=== PATIENT | female | born 1995 | race African-American/Black ===

== ENCOUNTER 2018-03-18 11:58 | Inpatient (IN) ==
[2018-03-18] MEDS ORDERED: HYDROmorphone PF Inj 1 MG/ML Ampul IV.PUSH ONE (12:25)
[2018-03-18] MEDS ORDERED: Sod Chloride 0.9% Inj 1,000 ML IV.SIG SCH (12:30)
--- NOTE | 2018-03-18 12:30 | ED ---
HPI General Chief complaint: Sickle Cell Stated complaint: Poss sickle cell anemia Time Seen by Provider: 03/18/18 12:19 Source: patient and family (Mother) Mode of arrival: wheelchair Limitations: no limitations History of Present Illness HPI narrative: 22-year-old female with history of sickle cell anemia, followed by a bench repair technician Dr. Moody at [facility] in [place], here with mom for evaluation of vaso-occlusive crisis. Symptoms started yesterday. The patient was actually just discharged from the emergency department in [place] still with pain. According to her mother, they were not adequately treating her pain, and the patient was discharged to soon. The mom requested that the patient be transferred to her bench repair technician in [place], however the treating physician declined to do so. Patient complains of diffuse body pains that are severe and are typical for vaso-occlusive crisis. Pain is mainly in her back, legs, and arms. She also has some chest pain that is sharp as well as a cough productive of yellowish/greenish sputum. No hemoptysis. No dyspnea. No fever. Related Data Home Medications Medication Instructions Recorded Confirmed albuterol sulfate 2 inh INHALATION Q4-6H PRN 03/18/18 03/18/18 folic acid 1 mg PO DAILY 03/18/18 03/18/18 hydromorphone [Dilaudid] 4 mg PO Q4-6H PRN 03/18/18 03/18/18 Allergies Allergy/AdvReac Type Severity Reaction Status Date / Time house dust Allergy Severe Swelling Unverified 03/18/18 12:08 milk Allergy Severe Rash Unverified 03/18/18 12:08 venom-honey bee Allergy Severe Swelling Unverified 03/18/18 12:08 Cockroach Allergy Severe SWELLING Uncoded 03/18/18 12:08 *MDRO Multi-Drug Resistant AdvReac Unknown MRSA Uncoded 03/18/18 12:08 Organism Review of Systems ROS: all other systems reviewed are negative [facility] Medical History Medical History Asthma (Acute) Sickle cell anemia (Acute) Surgical History Surgical History History of vascular access device (Acute) Social History Social History Substance History: Active Abuse Second Hand Smoke Exposure: No Smoking Status: Never smoker How Often Do You Have a Drink Containing Alcohol: Never Recent Travel in [facility] within the Last 8 Weeks: No Recent Out of Country Travel within the Last 8 Weeks: No Substance Abuse Detail Marijuana: Substance Use Status: Active Route Used Substance Abuse: Inhalation Reason for Use: Calm Down Immunization History Tetanus Immunization: Unsure Exam Narrative Exam Narrative: GENERAL: Well-developed, well-nourished, writhing in pain SKIN: Focused skin assessment warm/dry. No rash. HEAD: Atraumatic. Normocephalic. EYES: Pupils equal and round. No scleral icterus. No injection or drainage. ENT: No nasal bleeding or discharge. Mucous membranes pink and moist. NECK: Trachea midline. No JVD. CARDIOVASCULAR: Tachycardic, rate 101, regular. No murmur appreciated. RESPIRATORY: No accessory muscle use. Clear to auscultation. Breath sounds equal bilaterally. GASTROINTESTINAL: Abdomen soft, non-tender, nondistended. MUSCULOSKELETAL: No obvious deformities. No clubbing. No cyanosis. No edema. No signs of dactylitis. No warmth or erythema to any joint or extremity. NEUROLOGICAL: Awake and alert. No obvious cranial nerve deficits. Motor grossly within normal limits. Normal speech. PSYCHIATRIC: Appropriate mood and affect; insight and judgment normal. Course Initial Documented Vital Signs Temperature 98.7 F 03/18/18 12:04 Pulse Rate 99 H 03/18/18 12:04 Respiratory Rate 18 03/18/18 12:04 Blood Pressure 128/84 03/18/18 12:04 Pulse Oximetry 100 03/18/18 12:04 Last Documented Vital Signs Temperature 98.7 F 03/18/18 12:04 Pulse Rate 98 H 03/18/18 13:11 Respiratory Rate 20 03/18/18 13:11 Blood Pressure 114/52 L 03/18/18 13:11 Pulse Oximetry 95 03/18/18 13:11 Medical Decision Making [facility] Narrative Medical decision making narrative: Initial vital signs show heart rate 98, blood pressure 114/52, pulse ox 95% on room air, oral temperature 98.7F. CBC is remarkable for WBC 29.6, hemoglobin 7.2, hematocrit 21.4, platelets 512, 23.7 absolute neutrophil count, 1+ sickle cells, [place] bodies present CMP is essentially unremarkable. Reticulocyte count is 12%. Chest x-ray: No evidence of acute cardiopulmonary disease. Enlargement of the cardiac silhouette appears stable and may be secondary to orbital technique. Patient was given a liter of normal saline IV bolus, 1 mg of IV Dilaudid, and 50 mg of oral Benadryl shortly after my assessment. She continued to complain of pain and was given another dose of 1 mg of Dilaudid. She continues to moan in pain, however has brief episodes where she falls asleep. I am afraid of causing respiratory depression by overmedicating her with narcotic pain medications, therefore she will be given a dose of Toradol as her third dose of medication for pain control. The patient and the patient's mom were made aware of all findings. Mom tells me that her hemoglobin usually runs around 7.5, and her last transfusion was when it was below 7. She was also in the emergency department at [facility] throughout the night and likely received IV fluids, thus could be the culprit for even lower hemoglobin seen on her labs currently. Even though the patient's chest x-ray is clear, she does have a significant leukocytosis and has been having greenish/yellowish sputum. She denies hemoptysis. She may have bronchitis. Influenza will be checked, and the patient will be empirically given Rocephin and azithromycin to cover any pulmonary of possible infection. Because of ongoing pain, the patient will be admitted for further treatment and evaluation. Case discussed with hospitalist Dr. Craig who will admit the patient to his service. Medical Screen Exam Complete: Yes Emergency Medical Condition: Yes Differential Diagnosis Differential Diagnosis: Vaso-occlusive crisis, anemia, acute chest syndrome, pneumonia Lab Data Result diagrams: 03/18/18 12:55 03/18/18 12:55 Lab Results 03/18/18 03/18/18 Range/Units 12:55 12:55 WBC 29.6 H (4.0-11.0) th/mm3 RBC 2.21 L (4.00-5.30) mil/mm3 Hgb 7.2 L (11.6-15.3) gm/dL Hct 21.4 L (35.0-46.0) % MCV 96.7 (80.0-100.0) fL MCH 32.4 (27.0-34.0) pg MCHC 33.5 (32.0-36.0) % RDW 21.6 H (11.6-17.2) % Plt Count 512 H (150-450) th/mm3 MPV 7.9 (7.0-11.0) fL Prelim Diff (Auto) Manual diff required WBC Differential Manual diff final Seg Neuts % (Manual) 77 H (16-70) % Band Neuts % (Manual) 3 (0-6) % Lymphocytes % (Manual) 16 (9-44) % Monocytes % (Manual) 4 (0-8) % Abs Neuts (Manual) 23.7 H (1.8-7.7) th/mm3 Nucleated RBCs/100 WBC 5 H (0-0) /100 WBC Differential Comment . Platelet Estimate High H (Normal) Platelet Morphology Normal (Normal) Polychromasia 2.6 H (0.0-1.9) % Pappenheimer Bodies Present H (None) Sickle Cells 1+ H (None) [place] Bodies Present H (None) Retic Count 12.0 H (0.4-3.0) % Absolute Retic 264.5 H (20.0-150.0) mil/L Sodium 141 (136-145) meq/L Potassium 3.6 (3.5-5.1) meq/L Chloride 111 H (98-107) meq/L Carbon Dioxide 23.5 (21.0-32.0) meq/L Anion Gap 7 (5-15) meq/L BUN 4 L (7-18) mg/dL Creatinine 0.53 (0.50-1.00) mg/dL Estimated GFR Greater than 89 (>89) mL/min Random Glucose 118 H (74-106) mg/dL Calcium 8.1 L (8.5-10.1) mg/dL Total Bilirubin 1.7 H (0.2-1.0) mg/dL AST 44 H (16-38) U/L ALT 19 (9-42) U/L Alkaline Phosphatase 60 (45-117) U/L Total Creatine Kinase 74 (26-192) U/L Troponin I 0.02 (0.02-0.05) ng/mL Total Protein 7.3 (6.4-8.2) g/dL Albumin 4.0 (3.4-5.0) g/dL Imaging Data Radiologist's impression: Chest X-Ray 03/18/18 12:25 CONCLUSION: No evidence of acute cardiopulmonary disease. Enlargement of the cardiac silhouette appears stable and may be secondary to orbital technique. ECG Data Attestation: I personally reviewed and interpreted this ECG as follows: (Sinus, rate 88, normal axis, normal intervals, no acute ischemic abnormality.) Discharge Plan Discharge Disposition Patient Disposition: ED Admit(ED Internal Use Only) Discharge Condition Condition: Fair Discharge Details Diagnosis: Acute sickle cell crisis Physicians Team ED Provider: Hung Hidalgo Primary Care Provider: UNKNOWN, Rxs /Orders / Referrals /Forms Prescriptions: No Action folic acid 1 mg Tablet 1 mg PO DAILY RF: 0 hydromorphone [Dilaudid] 4 mg Tablet 4 mg PO Q4-6H PRN (Reason: Pain) RF: 0 albuterol sulfate 90 mcg/actuation Aerosol Powdr Breath Activated 2 inh INHALATION Q4-6H PRN (Reason: Shortness Of Breath) RF: 0 Status ED Status: With Doctor
--- NOTE | 2018-03-18 12:51 | XR ---
EXAM DATE: 03/18/2018 12:47 PM EST AGE/SEX: 22 years / Female INDICATIONS: Chest pain. CLINICAL DATA: This is the patient's initial encounter. Patient reports that signs and symptoms have been present for 1 day and indicates a pain score of 8/10. MEDICAL/SURGICAL HISTORY: . Sickle Cell disease. Methicillin-resistant Staphylococcus aureus. A sthma. Tonsillectomy. . COMPARISON: [facility], CHEST PA & LAT, 03/20/2016. . FINDINGS: AP portable upright view of the chest demonstrates mild enlargement of cardiac silhouette, stable. Daisy ngs are clear. Central line overlying the distal SVC. CONCLUSION: No evidence of acute cardiopulmonary disease. Enlargement of the cardiac silhouette appears stable an d may be secondary to orbital technique. Electronically signed by: Caitlin Poole MD Board Certified Radiologist 03/18/2018 12:49 PM Dyana HENNING
[2018-03-18 13:15] LABS: Hematocrit 21.4 % (35.0-46.0); Hemoglobin 7.2 gm/dL (11.6-15.3); Mean Corpuscular HGB Conc 33.5 % (32.0-36.0); Mean Corpuscular Hemoglobin 32.4 pg (27.0-34.0); Mean Corpuscular Volume 96.7 fL (80.0-100.0); Mean Platelet Volume 7.9 fL (7.0-11.0); Platelet Count 512 th/mm3 (150-450); Red Blood Count 2.21 mil/mm3 (4.00-5.30); Red Cell Distribution Width 21.6 % (11.6-17.2); White Blood Count 29.6 th/mm3 (4.0-11.0)
[2018-03-18] MEDS ORDERED: HYDROmorphone PF Inj 2 MG/ML Vial IV.PUSH ONE ×2 (13:19→16:45)
[2018-03-18 13:30] LABS: Anion Gap 7 meq/L (5-15); Aspartate Aminotransferase 44 U/L (16-38); Blood Urea Nitrogen 4 mg/dL (7-18); Calcium 8.1 mg/dL (8.5-10.1); Carbon Dioxide 23.5 meq/L (21.0-32.0); Chloride 111 meq/L (98-107); Glomerular Filtration Rate Greater Than 89 mL/min (>89); Glucose,Random 118 mg/dL (74-106); Potassium 3.6 meq/L (3.5-5.1); Sodium 141 meq/L (136-145)
[2018-03-18 13:31] LABS: Alanine Aminotransferase 19 U/L (9-42)
[2018-03-18 13:35] LABS: Alkaline Phosphatase 60 U/L (45-117); Total Protein 7.3 g/dL (6.4-8.2); Troponin I 0.02 ng/mL (0.02-0.05)
[2018-03-18 13:36] LABS: Creatine Kinase 74 U/L (26-192)
[2018-03-18 13:41] LABS: Howell-Jolly Bodies Present; Lymphocytes 16 % (9-44); Monocytes 4 % (0-8); Platelet Morphology Normal (Normal); Sickle Cells 1+; Tallied Nucleated RBC 5 (0-0)
[2018-03-18 13:42] LABS: Pappenheimer Bodies Present; Polychromasia 2.6 % (0.0-1.9)
[2018-03-18] MEDS ORDERED: Ketorolac Inj 30 MG/ML (IVP) Vial IV.PUSH ONE (13:42)
[2018-03-18] MEDS ORDERED: Azithromycin Inj 500 MG in Sodium Chlor 0.9% Inj 250 ML IV.SIG ONE (13:52)
[2018-03-18] MEDS ORDERED: Sod Chloride 0.9% Inj 1,000 ML IV.CONT SCH (14:30)
[2018-03-18] MEDS ORDERED: HYDROmorphone PF Inj 2 MG/ML Vial IV.PUSH PRN (14:47)
--- NOTE | 2018-03-18 14:57 | P.HPIM ---
History of Present Illness Primary Care Physician: UNKNOWN History of Present Illness: This patient is a 22 y/o F with a dx of Sickle cell anemia. She follows up with Dr. Moody at [facility] in [place]. She says she was recently discharged from [facility] ED but still continues to have pain and came into our hospital for evaluation. She has pain in her joints all over her body specifically in the lower exts b/l, lower back, and hips. No chest pain. The mother also reports that she has been having a cough productive of greenish sputum over the past few days. No abd pain, fevers, no chills. Patient says she has approximately 4 sickle cell crisis per yr. pmh sickle cell disease surgical hx none fam hx sickle cell disease in mothers side of the family social hx patient smokes marijuana, denies tobacco, denies etoh, denies any other substance abuse. Inpatient Certification: I certify that the inpatient services were ordered in accordance with Medicare regulations governing the order. This includes certification that hospital inpatient services are reasonable and necessary and in the case of services not specified as inpatient-only under 42 CFR 419.22(n), that they are appropriately provided as inpatient services in accordance to with the 2-midnight benchmark under 43 CFR 412.3(e) Estimated Total Length of Stay (Days): 3 Plans for Post Hospital Care: Home Review of Systems All other systems reviewed negative except as stated in HPI PMFSH - History History Provided By: Patient - Medical History Medical History: Medical History (Last Updated 03/18/18 @ 12:15 by Alejandrina Nuñez) Asthma Sickle cell anemia - Surgical History Surgical History: Surgical History (Last Updated 03/18/18 @ 12:15 by Alejandrina Nuñez) History of vascular access device - Tobacco History Second Hand Smoke Exposure: No Smoking Status: Never smoker - Alcohol History How Often Do You Have a Drink Containing Alcohol: Never - Substance Use History Substance History: Active Abuse - Substance Use Type Marijuana Status: Active Route Used: Inhalation Reason for Use: Calm Down - Travel History Recent Travel in the [place] Within the Last 8 Weeks: No Recent Travel Out of the Country Within the Last 8 Weeks: No - Immunization History Tetanus Immunization: Unsure Medications and Allergies Active Medications: Active Medications Hydrocodone Bitart/Acetaminophen ([place] 5/325) 1 tab PO Q4H PRN PRN Reason: PAIN SCALE 1 TO 5 Diphenhydramine HCl (Benadryl) 25 mg PO Q4H PRN PRN Reason: ITCHING Docusate Sodium (Colace) 100 mg PO BID CRISTELA Enoxaparin Sodium (Lovenox Inj) 30 mg SQ Q24H CRISTELA Folic Acid (Folic Acid) 1 mg PO DAILY CRISTELA Hydromorphone HCl (Dilaudid Pf Inj) 2 mg IV.PUSH Q4H PRN PRN Reason: PAIN SCALE 6 TO 10 Sodium Chloride (Ns Inj) 1,000 mls @ 125 mls/hr IV.CONT .Q8H CRISTELA Stop: 03/18/18 22:29 Ceftriaxone Sodium 1,000 mg/ (Sodium Chloride) 100 mls @ 200 mls/hr IV.SIG Q24H CRISTELA Azithromycin 250 mg/ Sodium (Chloride) 250 mls @ 250 mls/hr IV.SIG Q24H CRISTELA Lactated Ringer's (Lr 1000 Ml Inj) 1,000 mls @ 150 mls/hr IV.CONT .Q6H40M CRISTELA Sodium Chloride (Ns Flush) 2 ml IV.FLUSH PRN PRN PRN Reason: FLUSH AFTER USING IV ACCESS Sodium Chloride (Ns Flush) 2 ml IV.FLUSH PRN PRN PRN Reason: FLUSH AFTER USING IV ACCESS Sodium Chloride (Ns Flush) 2 ml IV.FLUSH BID [facility] Allergies Allergy/AdvReac Type Severity Reaction Status Date / Time house dust Allergy Severe Swelling Unverified 03/18/18 12:08 milk Allergy Severe Rash Unverified 03/18/18 12:08 venom-honey bee Allergy Severe Swelling Unverified 03/18/18 12:08 Cockroach Allergy Severe SWELLING Uncoded 03/18/18 12:08 *MDRO Multi-Drug Resistant AdvReac Unknown MRSA Uncoded 03/18/18 12:08 Organism Home Medications Medication Instructions Recorded Confirmed Type albuterol sulfate 2 inh INHALATION Q4-6H PRN 03/18/18 03/18/18 History folic acid 1 mg PO DAILY 03/18/18 03/18/18 History hydromorphone [Dilaudid] 4 mg PO Q4-6H PRN 03/18/18 03/18/18 History Exam Vital signs: Vital Signs 03/18/18 12:04 03/18/18 13:11 Temperature 98.7 F Pulse Rate 99 H 98 H Respiratory Rate 18 20 Blood Pressure 128/84 114/52 L Pulse Oximetry 100 95 Intake & Output 03/17/18 03/18/18 03/18/18 18:59 06:59 18:59 Intake Total 1100 / 1100 Balance 1100 / 1100 Weight 76.204 kg Intake: IV 1100 / 1100 NS Inj 1,000 ML @ 1000 mls/hr 1000 / 1000 IV.SIG .Q1H CRISTELA Rx#:[id number] Rocephin Inj 1,000 MG In NS Inj 100 / 100 100 ML @ 200 mls/hr IV.SIG ONCE ONE Rx#:[id number] Narrative: Patient is distress, complaining of pain in the lower back and lower exts b/l. Patient appears drowsy, complains of pain all over her body. S1S2 CTA b/l soft, nontender, normal bowel sounds no edema of the exts no neurological deficts. Results - Labs CBC & Chem 7: 03/18/18 12:55 03/18/18 12:55 Labs: Short CBC 03/18/18 Range/Units 12:55 WBC 29.6 H (4.0-11.0) th/mm3 Hgb 7.2 L (11.6-15.3) gm/dL Hct 21.4 L (35.0-46.0) % Plt Count 512 H (150-450) th/mm3 BMP 03/18/18 12:55 Sodium 141 Potassium 3.6 Chloride 111 H Carbon Dioxide 23.5 BUN 4 L Creatinine 0.53 Calcium 8.1 L Cardiac Enzymes 03/18/18 Range/Units 12:55 Total Creatine Kinase 74 (26-192) U/L Troponin I 0.02 (0.02-0.05) ng/mL Liver Function 03/18/18 Range/Units 12:55 Total Bilirubin 1.7 H (0.2-1.0) mg/dL AST 44 H (16-38) U/L ALT 19 (9-42) U/L Alkaline Phosphatase 60 (45-117) U/L Albumin 4.0 (3.4-5.0) g/dL - Imaging Impressions Chest X-Ray 03/18/18 12:25 CONCLUSION: No evidence of acute cardiopulmonary disease. Enlargement of the cardiac silhouette appears stable and may be secondary to orbital technique. Caprini VTE Risk Assessment Caprini VTE Risk Assessment: Moderate/High Risk (score >= 2) Caprini Risk Assessment Model: Point Value = 1 Point Value = 2 Point Value = 3 Point Value = 5 Age 41-60 Minor surgery BMI > 25 kg/m2 Swollen legs Varicose veins or History of unexplained or recurrent spontaneous Oral contraceptives or hormone replacement Sepsis (< 1 month) Serious lung disease, including pneumonia (< 1 month) Abnormal pulmonary function Acute myocardial infarction Congestive heart failure (< 1 month) History of inflammatory bowel disease Medical patient at bed rest Age 61-74 Arthroscopic surgery Major open surgery (> 45 min) Laparoscopic surgery (> 45 min) Malignancy Confined to bed (> 72 hours) Immobilizing plaster cast Central venous access Age >= 75 History of VTE Family history of VTE Factor V Leiden Prothrombin [id number] Lupus anticoagulant Anticardiolipin antibodies Elevated serum homocysteine Heparin-induced thrombocytopenia Other congenital or acquired thrombophilia Stroke (< 1 month) Elective arthroplasty Hip, pelvis, or leg fracture Acute spinal cord injury (< 1 month) Prophylaxis Regimen: Total Risk Factor Score Risk Level Prophylaxis Regimen 0-1 Low Early ambulation 2 Moderate Order ONE of the following: *Sequential Compression Device (SCD) *Heparin 5000 units SQ BID 3-4 Higher Order ONE of the following medications: *Heparin 5000 units SQ TID *Enoxaparin/Lovenox 40 mg SQ daily (WT < 150 kg, CrCl > 30 mL/min) *Enoxaparin/Lovenox 30 mg SQ daily (WT < 150 kg, CrCl > 10-29 mL/min) *Enoxaparin/Lovenox 30 mg SQ BID (WT < 150 kg, CrCl > 30 mL/min) AND/OR *Sequential Compression Device (SCD) 5 or more Highest Order ONE of the following medications: *Heparin 5000 units SQ TID (Preferred with Epidurals) *Enoxaparin/Lovenox 40 mg SQ daily (WT < 150 kg, CrCl > 30 mL/min) *Enoxaparin/Lovenox 30 mg SQ daily (WT < 150 kg, CrCl > 10-29 mL/min) *Enoxaparin/Lovenox 30 mg SQ BID (WT < 150 kg, CrCl > 30 mL/min) AND *Sequential Compression Device (SCD) Assessment and Plan - Plan This patient is a 22 y/o F with a dx of Sickle cell anemia. She follows up with Dr. Moody at [facility] in [place]. She says she was recently discharged from [facility] ED yesterday but still continues to have pain and came into our hospital for evaluation. She has pain in her joints all over her body specifically in the lower exts b/l, lower back, and hips. No chest pain. The mother also reports that she has been having a cough productive of greenish sputum over the past few days. 1. Acute sickle cell pain crisis 2. SIRS 2/2 #1 3. Anemia 2/2 #1 Hgb 7.2, retic ct elevated significantly, sickle cells present. Patient received Dilaudid in our ED and is currently drowsy. Received 1L NS in the ED here, will continue IVF Patient is tachycardic, elevated wbc count 29 blood cultures ordered. CXR no infiltrate but pt is having a cough. Started on IV antibiotics. Flu swab done and pending. Will follow up the results. Patient will be placed on supplemental oxygen. Incentive spirometry. Follow up all cxs, LDH Hgb 7.2, will transfuse if it drops below 7. As per pts mother her hgb is around 7.8 usually. Hematology consulted. Plan discussed with the patients nurse in ED. Lovenox for DVT prophylaxis.
[2018-03-18 15:33] LABS: Bilirubin,Urine Negative (Negative); Clarity,Urine Hazy (Clear); Color,Urine Yellow (Yellw/Straw); Glucose,Urine (UA) Negative (Negative); Leukocyte Esterase,Urine Negative (Negative); Mucus,Urine Moderate /lpf (Occasional); Nitrite,Urine Negative (Negative); Specific Gravity,Urine 1.008 (1.002-1.035); Squamous Epithelial Cell,Urine 2 /hpf (0-5)
[2018-03-18 15:35] LABS: Urobilinogen,Urine 0.2 mg/dL (Less than 2)
[2018-03-18] MEDS ORDERED: Enoxaparin Inj 30 MG/0.3 ML Syringe SQ SCH (16:00)
--- NOTE | 2018-03-18 18:05 | ECG ---
Date Performed: 03/18/2018 Time Performed: 13:01:41 PTAGE: 22 years EKG: Sinus rhythm Since the previous tracing, no significant change noted NORMAL ECG PREVIOUS TRACING : 08/05/2013 13.45 DOCTOR: Hossein Miller Interpretating Date/Time 03/18/2018 18:02:56
[2018-03-18] MEDS: Docusate Sodium 100 MG Capsule PO SCH (21:26)
--- NOTE | 2018-03-18 22:25 | MB ---
cc: Shantelle Renner MD DATE: 03/18/2018 REASON FOR CONSULTATION: Consult requested by hospitalist for evaluation and management of sickle cell painful crisis. HISTORY OF PRESENT ILLNESS: This is a 22-year-old female. She has a history of sickle cell anemia with multiple painful crises. She was followed by pediatric hematology at [facility] in [place]. The patient recently went to [facility] for back pain. She was treated in the emergency room and was discharged. She continues to have severe pain. She started having cough with greenish phlegm. The patient's mom decided to bring her to [facility]. The patient was found to have severe sickle cell painful crisis. She is admitted to the hospital. Hospitalist is now consulting hematology. The patient has been getting Dilaudid 2 mg every 4 hours, hydration, oxygen, antibiotics and folic acid. She is complaining of pain all over, but mostly pain in the back. She denies any shortness of breath or chest pains. The rest of the review of systems unable to obtain as she is in severe pain. The patient's RN was present at bedside. PAST MEDICAL HISTORY: 1. Asthma. 2. Sickle cell anemia. PAST SURGICAL HISTORY: Infusaport. ALLERGIES: 1. HOUSE DUST. 2. MILK. 3. VENOM, HONEYBEE. 4. COCKROACH. MEDICATIONS PRIOR TO COMING TO THE HOSPITAL: 1. Dilaudid. 2. Folic acid. 3. Albuterol. FAMILY HISTORY: Significant for sickle cell anemia. SOCIAL HISTORY: The patient does not smoke cigarettes, does not drink alcohol. PHYSICAL EXAMINATION: GENERAL: Reveals a well-developed, well-nourished female who is in moderate distress due to the pain. VITAL SIGNS: Temperature 98.5, heart rate is 90, blood pressure 155/77, O2 saturation 100% on 2 liters nasal cannula. HEENT: PERRLA. EOMI. Sclerae is mildly icteric. NECK: No lymphadenopathy noted. LUNGS: No wheezing or rhonchi. HEART: Tachycardia. ABDOMEN: Soft, diffuse tenderness noted. EXTREMITIES: No pedal edema. NEUROLOGIC: Awake, alert. SKIN: No significant lesions noted. ASSESSMENT AND PLAN: Sickle cell painful crisis. No evidence of acute chest syndrome. PLAN: I have reviewed her available records, and I have discussed with the patient regarding her condition. Her CBC showed white count 29.6, hemoglobin 7.2, platelets 512. Comprehensive metabolic profile is significant for calcium of 8.1, total bilirubin 1.79, AST 44. LDH is 437. The patient is receiving narcotic Dilaudid 2 mg IV every 4 hours. She is also on antibiotic azithromycin and ceftriaxone. She is on Lovenox 30 mg p.r.n. for deep vein thrombosis prophylaxis. She is also on folic acid, Lortab for breakthrough pain, and normal saline hydration at 125 mL per hour. I agree with your management of the sickle cell painful crisis. She does not require any blood transfusion. No evidence of acute chest syndrome. Chest x-ray does not show any pulmonary infiltrate or pneumonia. Thank you for asking my opinion. MD SARAH Polanco/kayla/jeff , 09:28 PM , 09:40 PM KALA
[2018-03-18] MEDS: HYDROmorphone PF Inj 2 MG/ML Vial IV.PUSH PRN (22:32)
[2018-03-18] MEDS: Acetaminophen 325 MG Tablet PO PRN (23:11)
[2018-03-19] MEDS: HYDROmorphone PF Inj 2 MG/ML Vial IV.PUSH PRN ×6 (02:28→13:40)
[2018-03-19 06:10] LABS: Baso # (Auto) 0.1 th/mm3 (0.0-0.2); Baso % (Auto) 0.4 % (0.0-2.0); Eos # (Auto) 0.1 th/mm3 (0.0-0.4); Eos % (Auto) 0.3 % (0.0-4.0); Lymph % (Auto) 15.3 % (9.0-44.0); Mean Corpuscular HGB Conc 33.8 % (32.0-36.0); Mean Corpuscular Hemoglobin 32.2 pg (27.0-34.0); Mean Corpuscular Volume 95.2 fL (80.0-100.0); Mean Platelet Volume 8.3 fL (7.0-11.0); Mono # (Auto) 2.8 th/mm3 (0.0-0.9); Mono % (Auto) 10.9 % (0.0-8.0); Neut # (Auto) 18.9 th/mm3 (1.8-7.7); Neut % (Auto) 73.1 % (16.0-70.0); Platelet Count 420 th/mm3 (150-450); Red Blood Count 1.86 mil/mm3 (4.00-5.30); Red Cell Distribution Width 20.5 % (11.6-17.2); White Blood Count 25.9 th/mm3 (4.0-11.0)
[2018-03-19 06:11] LABS: Reticulocyte Percent 11.4 % (0.4-3.0)
[2018-03-19 06:18] LABS: Hematocrit 17.7 % (35.0-46.0)
[2018-03-19 06:30] LABS: Anion Gap 6 meq/L (5-15); Blood Urea Nitrogen 4 mg/dL (7-18); Calcium 7.7 mg/dL (8.5-10.1); Carbon Dioxide 25.1 meq/L (21.0-32.0); Chloride 110 meq/L (98-107); Glomerular Filtration Rate Greater Than 89 mL/min (>89); Glucose,Random 94 mg/dL (74-106); Lactate Dehydrogenase 587 U/L (84-246); Potassium 3.6 meq/L (3.5-5.1); Sodium 141 meq/L (136-145)
[2018-03-19] MEDS ORDERED: Acetaminophen 325 MG Tablet PO PRN (07:43)
[2018-03-19 07:51] LABS: Lymphocytes 24 % (9-44); Monocytes 4 % (0-8); Platelet Estimate Normal (Normal); Platelet Morphology Normal (Normal); Tallied Nucleated RBC 14 (0-0)
[2018-03-19 07:52] LABS: Howell-Jolly Bodies Present; Sickle Cells 1+
[2018-03-19 07:53] LABS: Pappenheimer Bodies Present
[2018-03-19] MEDS ORDERED: Sodium Chlor 0.9% Inj 250 ML IV.SIG SCH (08:00)
[2018-03-19] MEDS: Acetaminophen 325 MG Tablet PO PRN (08:06)
[2018-03-19] MEDS: Folic Acid 1 MG Tablet PO SCH (08:06)
--- NOTE | 2018-03-19 08:38 | XR ---
EXAM DATE: 03/19/2018 8:35 AM EST AGE/SEX: 22 years / Female INDICATIONS: Entire body pain, chest pain, and shortness of breath. CLINICAL DATA: This is the patient's subsequent encounter. Patient reports that signs and symptoms h ave been present for 2 days and indicates a pain score of 7/10. MEDICAL/SURGICAL HISTORY: . Sickle Cell disease. Methicillin-resistant Staphylococcus aureus. A sthma. Tonsillectomy. . . COMPARISON: [facility] [place], CHEST 1V SINGLE AP, 03/18/2018. . FINDINGS: A single AP view of the chest demonstrates the lungs to be symmetrically aerated without evidence of mass, infiltrate or effusion. Central line with the distal tip overlying the cavoatrial junction. The cardiomediastinal contours are unremarkable. Osseous structures are intact. CONCLUSION: Negative examination. Electronically signed by: Caitlin Poole MD Board Certified Radiologist 03/19/2018 8:37 AM NURY [facility]
--- NOTE | 2018-03-19 09:20 | P.PNONC ---
Subjective Interval history: Low-grade fever 100.6 Patient reports pain "all over" However she denies any chest pain Per RN her O2 sats were thought to be low overnight and she was placed on simple mask While I was at bedside SEARCH ANALYST checked her O2 sats on her finger while her simple mask was on the top of her head and her O2 saturations were 99-100% Objective Vital Signs/Intake & Output: Vital Signs 03/18/18 12:04 03/18/18 13:11 03/18/18 15:34 Temperature 98.7 F Pulse Rate 99 H 98 H Respiratory Rate 18 20 16 Blood Pressure 128/84 114/52 L Pulse Oximetry 100 95 03/18/18 15:40 03/18/18 15:58 03/18/18 16:08 Temperature 98.5 F Pulse Rate 90 90 Respiratory Rate 18 24 Blood Pressure 134/68 155/77 H Pulse Oximetry 100 100 100 03/18/18 19:52 03/18/18 20:00 03/19/18 00:00 Temperature 100.4 F H 99.6 F 99.6 F Pulse Rate 103 H 99 H 99 H Respiratory Rate 24 16 16 Blood Pressure 146/76 H 125/65 125/65 Pulse Oximetry 100 99 99 03/19/18 04:00 03/19/18 05:45 03/19/18 07:56 Temperature 98.7 F 100.6 F H Pulse Rate 93 H Respiratory Rate 18 40 H Blood Pressure 146/63 H 123/63 Pulse Oximetry 93 L 96 90 L 03/19/18 08:00 03/19/18 08:37 Temperature Pulse Rate 104 H Respiratory Rate 26 H Blood Pressure Pulse Oximetry 92 L Intake & Output 03/18/18 03/19/18 03/19/18 18:59 06:59 18:59 Intake Total 1350 / 1350 1040 / 1040 Balance 1350 / 1350 1040 / 1040 Weight 167 lb 15.876 oz 167 lb 15.876 oz Intake: IV 1350 / 1350 800 / 800 LR 1000 mL Inj 1,000 ML @ 150 800 / 800 mls/hr IV.CONT .Q6H40M [facility] Rx#: [id number] Azithromycin Inj 500 MG In NS 250 / 250 Inj 250 ML @ 250 mls/hr IV.SIG ONCE ONE Rx#:[id number] NS Inj 1,000 ML @ 1000 mls/hr 1000 / 1000 IV.SIG .Q1H [facility] Rx#:[id number] Rocephin Inj 1,000 MG In NS Inj 100 / 100 100 ML @ 200 mls/hr IV.SIG ONCE ONE Rx#:[id number] Oral 240 / 240 Other: # Voids 5 Weight On Admission 167 lb 15.876 oz Result Diagrams: 03/19/18 04:00 03/19/18 04:00 Laboratory Results: Laboratory Results - last 24 hr 03/18/18 03/18/18 03/18/18 12:55 12:55 12:55 WBC 29.6 H RBC 2.21 L Hgb 7.2 L Hct 21.4 L MCV 96.7 MCH 32.4 MCHC 33.5 RDW 21.6 H Plt Count 512 H MPV 7.9 Prelim Diff (Auto) Manual diff required Neut % (Auto) Lymph % (Auto) [place] % (Auto) Eos % (Auto) Baso % (Auto) Neut # (Auto) Lymph # (Auto) [place] # (Auto) Eos # (Auto) Baso # (Auto) WBC Differential Manual diff final Seg Neuts % (Manual) 77 H Band Neuts % (Manual) 3 Lymphocytes % (Manual) 16 Monocytes % (Manual) 4 Abs Neuts (Manual) 23.7 H Nucleated RBCs/100 WBC 5 H Differential Comment . Platelet Estimate High H Platelet Morphology Normal Polychromasia 2.6 H Pappenheimer Bodies Present H Sickle Cells 1+ H Sibley-Carter Bodies Present H Retic Count 12.0 H Absolute Retic 264.5 H Sodium 141 Potassium 3.6 Chloride 111 H Carbon Dioxide 23.5 Anion Gap 7 BUN 4 L Creatinine 0.53 Estimated GFR Greater than 89 Random Glucose 118 H Calcium 8.1 L Total Bilirubin 1.7 H AST 44 H ALT 19 Alkaline Phosphatase 60 Lactate Dehydrogenase 437 H Total Creatine Kinase 74 Troponin I 0.02 Total Protein 7.3 Albumin 4.0 Urine Color Urine Clarity Urine pH Ur Specific [place] Urine Protein Urine Glucose (UA) Urine Ketones Urine Occult Blood Urine Nitrate Urine Bilirubin Urine Urobilinogen Ur Leukocyte Esterase Urine RBC Urine WBC Ur Squamous Epith Cells Urine Mucus Micro UA Comment Ur Microscopic Review Urine Culture Comments Blood Type Antibody Screen MTS Gel Crossmatch 03/18/18 03/18/18 03/19/18 14:20 14:40 04:00 WBC RBC Hgb Hct MCV MCH MCHC RDW Plt Count MPV Prelim Diff (Auto) Neut % (Auto) Lymph % (Auto) [place] % (Auto) Eos % (Auto) Baso % (Auto) Neut # (Auto) Lymph # (Auto) [place] # (Auto) Eos # (Auto) Baso # (Auto) WBC Differential Seg Neuts % (Manual) Band Neuts % (Manual) Lymphocytes % (Manual) Monocytes % (Manual) Abs Neuts (Manual) Nucleated RBCs/100 WBC Differential Comment Platelet Estimate Platelet Morphology Polychromasia Pappenheimer Bodies Sickle Cells Sibley-Carter Bodies Retic Count Absolute Retic Sodium 141 Potassium 3.6 Chloride 110 H Carbon Dioxide 25.1 Anion Gap 6 BUN 4 L Creatinine 0.41 L Estimated GFR Greater than 89 Random Glucose 94 Calcium 7.7 L Total Bilirubin AST ALT Alkaline Phosphatase Lactate Dehydrogenase 587 H Total Creatine Kinase Troponin I Total Protein Albumin Urine Color Yellow Urine Clarity Hazy H Urine pH 5.0 Ur Specific [place] 1.008 Urine Protein Negative Urine Glucose (UA) Negative Urine Ketones Negative Urine Occult Blood Negative Urine Nitrate Negative Urine Bilirubin Negative Urine Urobilinogen 0.2 Ur Leukocyte Esterase Negative Urine RBC 1 Urine WBC 1 Ur Squamous Epith Cells 2 Urine Mucus Moderate H Micro UA Comment Culture not ind Ur Microscopic Review Not Reportable Urine Culture Comments Culture not ind Blood Type A Positive Antibody Screen Negative MTS Gel Crossmatch 03/19/18 03/19/18 03/19/18 04:00 04:00 08:10 WBC 25.9 H RBC 1.86 L Hgb 6.0 L* Hct 17.7 L* MCV 95.2 MCH 32.2 MCHC 33.8 RDW 20.5 H Plt Count 420 MPV 8.3 Prelim Diff (Auto) Slide review pending Neut % (Auto) 73.1 H Lymph % (Auto) 15.3 [place] % (Auto) 10.9 H Eos % (Auto) 0.3 Baso % (Auto) 0.4 Neut # (Auto) 18.9 H Lymph # (Auto) 4.0 [place] # (Auto) 2.8 H Eos # (Auto) 0.1 Baso # (Auto) 0.1 WBC Differential Manual diff final Seg Neuts % (Manual) 72 H Band Neuts % (Manual) Lymphocytes % (Manual) 24 Monocytes % (Manual) 4 Abs Neuts (Manual) 18.6 H Nucleated RBCs/100 WBC 14 H Differential Comment . Platelet Estimate Normal Platelet Morphology Normal Polychromasia Pappenheimer Bodies Present H Sickle Cells 1+ H Sibley-Carter Bodies Present H Retic Count 11.4 H Absolute Retic 202.9 H Sodium Potassium Chloride Carbon Dioxide Anion Gap BUN Creatinine Estimated GFR Random Glucose Calcium Total Bilirubin AST ALT Alkaline Phosphatase Lactate Dehydrogenase Total Creatine Kinase Troponin I Total Protein Albumin Urine Color Urine Clarity Urine pH Ur Specific [place] Urine Protein Urine Glucose (UA) Urine Ketones Urine Occult Blood Urine Nitrate Urine Bilirubin Urine Urobilinogen Ur Leukocyte Esterase Urine RBC Urine WBC Ur Squamous Epith Cells Urine Mucus Micro UA Comment Ur Microscopic Review Urine Culture Comments Blood Type Antibody Screen MTS Gel Crossmatch See Detail Culture Results: Microbiology 03/18/18 14:25 Influenza Types A,B Antigen - Final Nasal Wash Negative for FLU A and B antigen Infection due to influenza A or B cannot be ruled out since the antigen present in the sample may be below the detection limit of the test. Imaging Studies: Impressions Chest X-Ray 03/18/18 12:25 CONCLUSION: No evidence of acute cardiopulmonary disease. Enlargement of the cardiac silhouette appears stable and may be secondary to orbital technique. Chest X-Ray 03/19/18 00:00 CONCLUSION: Negative examination. Medications: Active Medications Generic Name Dose Route Start Last Admin Trade Name Freq PRN Reason Stop Dose Admin Acetaminophen 650 mg 03/18/18 21:58 03/19/18 08:06 Tylenol PO 650 mg Q6H PRN Administration FEVER > 100.4 Hydrocodone Bitart/Acetaminophen 1 tab 03/18/18 14:53 03/18/18 21:26 [place] 5/325 PO 1 tab Q4H PRN Administration PAIN SCALE 1 TO 5 Albuterol 1 ampul 03/19/18 08:01 03/19/18 08:35 Duoneb Neb (Prn) NEB 1 ampul Q4HR NEB PRN Administration wheezing/SOB Diphenhydramine HCl 25 mg 03/18/18 14:47 03/18/18 22:32 Benadryl PO 25 mg Q4H PRN Administration ITCHING Docusate Sodium 100 mg 03/18/18 21:00 03/18/18 21:26 Colace PO 100 mg BID [facility] Administration Enoxaparin Sodium 30 mg 03/18/18 16:00 03/18/18 21:31 Lovenox Inj SQ 30 mg Q24H [facility] Administration Folic Acid 1 mg 03/19/18 09:00 03/19/18 08:06 Folic Acid PO 1 mg DAILY [facility] Administration Hydromorphone HCl 2 mg 03/18/18 22:00 03/19/18 07:44 Dilaudid Pf Inj IV.PUSH 2 mg Q2H PRN Administration PAIN SCALE 6 TO 10 Lactated Ringer's 1,000 mls @ 200 mls/hr 03/18/18 21:00 03/19/18 06:32 Lr 1000 Ml Inj IV.CONT Not Given .Q5H [facility] Sodium Chloride 2 ml 03/18/18 21:00 03/18/18 21:36 Ns Flush IV.FLUSH Not Given BID [facility] Objective Remarks: GENERAL: Young female resting in bed. She appears uncomfortable. SKIN: Warm and dry. HEAD: Normocephalic. EYES: No scleral icterus. No injection or drainage. NECK: Supple, trachea midline. No JVD or lymphadenopathy. CARDIOVASCULAR: + S1/S2. Tachycardic. RESPIRATORY: Mildly tachypneic. GASTROINTESTINAL: Abdomen soft, non-tender, nondistended. EXTREMITIES: No cyanosis, or edema. MUSCULOSKELETAL: Adequate muscle tone. NEUROLOGICAL: No obvious focal deficit. Awake, alert, and oriented x3. Assessment/Plan - Plan 22-year-old female admitted with shortness of breath and sickle cell crisis 1. Chest x-ray was repeated this morning after I was made aware that she had increased O2 demands and tachypnea. Repeat chest x-ray is normal. Furthermore her O2 sats were found to be 100% on room air. 2. Her hemoglobin however did drop overnight. She was 6.0 this morning. I have ordered 1 unit packed red blood cell transfusion. 3. She is currently receiving 2 mg of Dilaudid every 2 hours as needed for pain. Continue supportive care. - Attending Statement The exam, history, and the medical decision-making described in the above note were completed with the assistance of the mid-level provider. I reviewed and agree with the findings presented. I attest that I had a [id number] encounter with the patient on the same day, and personally performed and documented my assessment and findings in the medical record. Patient seen and examined in the presence of RN Patient is writhing in pain. She feels miserable due to severe pain in the legs and the back EXAMINATION GRADER pump was started this evening. She is still in severe pain I have change the EXAMINATION GRADER pump settings. We will give her 0.5 mg of Dilaudid basal rate, change the interval of push from every 30 minutes to every 15 minutes. The maximum dose of Dilaudid will be 2.5 mg/h. She will be monitor for any breathing issues closely in the ICU. We will adjust the EXAMINATION GRADER pump settings accordingly. Also give her Toradol 30 mg IV every 6 hours as scheduled for 2 days PRBC 1 unit today Monitor CBC Discussed with patient and RN
[2018-03-19] MEDS: Docusate Sodium 100 MG Capsule PO SCH ×2 (09:24→20:17)
--- NOTE | 2018-03-19 09:31 | P.PNIM ---
Subjective Interval history: Patient still in a lot of pain all over, mild headache, no focal deficits, speech is normal, mildly short of breath. Tachycardic. Physical Exam Vital signs: Last Vital Signs Temp 100.6 F H 03/19/18 07:56 Pulse 104 H 03/19/18 08:37 Resp 26 H 03/19/18 08:37 BP 123/63 03/19/18 07:56 Pulse Ox 92 L 03/19/18 08:00 Intake & Output 03/17/18 03/18/18 03/19/18 03/20/18 06:59 06:59 06:59 06:59 Intake Total 2390 / 2390 Balance 2390 / 2390 Weight 76.2 kg Narrative: Patient is in distress because of pain all over. Tachycardic otherwise regular Clear breath sounds bilaterally Soft, nontender, normal bowel sounds No edema, tender to touch all over. Alert awake and oriented x3, no focal deficits, speech is normal. Bilateral upper extremity strength is 4/5 but symmetric, likely secondary because of pain Results Labs CBC & Chem 7: 03/19/18 04:00 03/19/18 04:00 Labs: Microbiology 03/18/18 14:25 Nasal Wash Influenza Types A,B Antigen - Final Negative for FLU A and B antigen Infection due to influenza A or B cannot be ruled out since the antigen present in the sample may be below the detection limit of the test. Imaging Imaging: Impressions Chest X-Ray 03/18/18 12:25 CONCLUSION: No evidence of acute cardiopulmonary disease. Enlargement of the cardiac silhouette appears stable and may be secondary to orbital technique. Chest X-Ray 03/19/18 00:00 CONCLUSION: Negative examination. Assessment and Plan (1) Anemia: Code(s): D64.9 - Anemia, unspecified Status: Acute (2) SIRS (systemic inflammatory response syndrome): Code(s): R65.10 - Systemic inflammatory response syndrome (SIRS) of non-infectious origin without acute organ dysfunction Status: Acute Plan This patient is a 22 y/o F with a dx of Sickle cell anemia. Recently discharged from [place] for sickle cell crisis, presenting to our hospital for continuing polyarticular pain, shortness of breath and cough. She follows up with Dr. Moody at [facility] in [place]. Acute sickle cell pain crisis-hemoglobin 6.0, reticulocyte count elevated, continue pain control with Dilaudid intravenously every 12 hours, start oxycodone to every 6 hours [id number] for now until better, chest x-ray unremarkable, continue IVF, increase to 200 cc/h of LR. Oxygen support. LDH 587, follow tomorrow. Hematology following. Chest x-ray did not show acute chest syndrome. Continue folic acid SIRS, rule out pneumonia-meets SIRS criteria, no definite source of infection. X-ray negative for infiltrate. Follow-up blood culture, continue empiric antibiotics with ceftriaxone and azithromycin, switch to p.o. WBC 26. Urinalysis negative Anemia-hemoglobin dropped to 6, transfuse 1 unit of packed red blood cells. Monitor CBC daily. DVT prophylaxis: Lovenox Progress Note: Quality VTE Deep Vein Thrombosis/Pulmonary Embolism Present on Admission: No
[2018-03-19] MEDS ORDERED: Azithromycin Inj 250 MG in Sodium Chlor 0.9% Inj 250 ML IV.SIG SCH (15:00)
[2018-03-19] MEDS: Azithromycin 250 MG Tablet PO SCH (15:21)
[2018-03-19] MEDS ORDERED: Naloxone Inj 0.4 MG/ML Vial IV.PUSH PRN (15:48)
[2018-03-19] MEDS: HYDROmorphone PCA Inj 6 MG/30 ML PCA.VIAL PCA PRN ×2 (16:21→22:37)
[2018-03-19] MEDS ORDERED: Ketorolac Inj 30 MG/ML (IVP) Vial IV.PUSH ONE (18:45)
[2018-03-19] MEDS: Enoxaparin Inj 40 MG/0.4 ML Syringe SQ SCH (20:21)
[2018-03-20] MEDS: HYDROmorphone PCA Inj 6 MG/30 ML PCA.VIAL PCA PRN ×4 (05:52→22:48)
[2018-03-20 06:14] LABS: Baso # (Auto) 0.1 th/mm3 (0.0-0.2); Baso % (Auto) 0.2 % (0.0-2.0); Eos # (Auto) 0.2 th/mm3 (0.0-0.4); Eos % (Auto) 1.1 % (0.0-4.0); Lymph # (Auto) 4.5 th/mm3 (1.0-4.8); Lymph % (Auto) 21.4 % (9.0-44.0); Mean Corpuscular HGB Conc 34.4 % (32.0-36.0); Mean Corpuscular Hemoglobin 31.7 pg (27.0-34.0); Mean Corpuscular Volume 92.1 fL (80.0-100.0); Mean Platelet Volume 7.9 fL (7.0-11.0); Mono # (Auto) 2.1 th/mm3 (0.0-0.9); Mono % (Auto) 9.8 % (0.0-8.0); Neut # (Auto) 14.2 th/mm3 (1.8-7.7); Neut % (Auto) 67.5 % (16.0-70.0); Platelet Count 383 th/mm3 (150-450); Red Blood Count 1.95 mil/mm3 (4.00-5.30); Red Cell Distribution Width 19.7 % (11.6-17.2)
[2018-03-20 06:24] LABS: Hemoglobin 6.2 gm/dL (11.6-15.3)
[2018-03-20 06:37] LABS: Anion Gap 6 meq/L (5-15); Blood Urea Nitrogen 4 mg/dL (7-18); Calcium 8.1 mg/dL (8.5-10.1); Carbon Dioxide 26.6 meq/L (21.0-32.0); Chloride 107 meq/L (98-107); Glomerular Filtration Rate Greater Than 89 mL/min (>89); Glucose,Random 80 mg/dL (74-106); Potassium 3.3 meq/L (3.5-5.1); Sodium 140 meq/L (136-145)
[2018-03-20 06:38] LABS: Lactate Dehydrogenase 640 U/L (84-246)
[2018-03-20] MEDS ORDERED: Sodium Chlor 0.9% Inj 250 ML IV.SIG SCH (07:00)
[2018-03-20] MEDS: Folic Acid 1 MG Tablet PO SCH (08:51)
[2018-03-20] MEDS: Azithromycin 250 MG Tablet PO SCH (08:51)
[2018-03-20] MEDS: Docusate Sodium 100 MG Capsule PO SCH ×2 (08:51→21:52)
[2018-03-20 11:12] LABS: Lymphocytes 16 % (9-44); Monocytes 5 % (0-8); Myelocytes 1 % (0-0); Tallied Nucleated RBC 11 (0-0)
[2018-03-20 11:13] LABS: Basophilic Stippling Moderate; Ovalocytes 2+; Pappenheimer Bodies Present; Sickle Cells 1+; Target Cells 1+
[2018-03-20 11:14] LABS: Howell-Jolly Bodies Present; Platelet Estimate Normal (Normal); Platelet Morphology Normal (Normal)
[2018-03-20] MEDS: Ketorolac Inj 30 MG/ML (IVP) Vial IV.PUSH SCH ×2 (12:02→17:33)
--- NOTE | 2018-03-20 13:03 | P.PNONC ---
Subjective Interval history: Pt lying in bed, her family is at the bedside. She is currently on SPORTS BROADCASTER pump with dilaudid. She reports that she is still in alot of pain, localized to bilateral arms, back and intermittent migraine. She states that the pain medication runs out in an hour. During my time in her room she appears lethargic at times. Discussed with her RN, she reports that she received 1 unit pRBC this a.m. and will be repeating a CBC 4 hours post transfusion. She also just gave her ketorlac. Objective Vital Signs/Intake & Output: Vital Signs 03/19/18 13:51 03/19/18 15:22 03/19/18 16:00 Temperature 98.6 F Pulse Rate 104 H Respiratory Rate 21 18 Blood Pressure 112/59 L Pulse Oximetry 96 100 03/19/18 17:04 03/19/18 20:00 03/19/18 20:30 Temperature Pulse Rate 98 H Respiratory Rate 15 Blood Pressure Pulse Oximetry 100 03/19/18 21:47 03/19/18 22:00 03/19/18 22:05 Temperature 99.3 F Pulse Rate 101 H 93 H 98 H Respiratory Rate 25 H 45 H 37 H Blood Pressure 145/63 H Pulse Oximetry 94 L 100 100 03/19/18 23:00 03/20/18 00:00 03/20/18 00:01 Temperature 99.6 F Pulse Rate 93 H 99 H 92 H Respiratory Rate 32 H 38 H 21 Blood Pressure 102/56 L Pulse Oximetry 100 95 95 03/20/18 01:00 03/20/18 02:00 03/20/18 02:06 Temperature Pulse Rate 87 100 H 101 H Respiratory Rate 19 28 H 58 H Blood Pressure 117/61 Pulse Oximetry 99 100 100 03/20/18 03:00 03/20/18 04:00 03/20/18 04:06 Temperature 98.8 F Pulse Rate 96 H 96 H 92 H Respiratory Rate 31 H 29 H 47 H Blood Pressure 139/80 139/80 Pulse Oximetry 99 98 96 03/20/18 05:00 03/20/18 05:48 03/20/18 06:00 Temperature Pulse Rate 100 H 94 H Respiratory Rate 24 32 H 16 Blood Pressure 127/58 L Pulse Oximetry 98 97 03/20/18 06:22 03/20/18 07:00 03/20/18 08:00 Temperature 98.0 F Pulse Rate 95 H 91 H Respiratory Rate 28 H 32 H 26 H Blood Pressure Pulse Oximetry 95 93 L 03/20/18 08:49 03/20/18 09:00 03/20/18 09:16 Temperature 98 F Pulse Rate 96 H 95 H 83 Respiratory Rate 41 H 38 H 19 Blood Pressure 149/63 H 149/63 H Pulse Oximetry 79 L 96 99 03/20/18 09:34 03/20/18 09:36 03/20/18 10:00 Temperature 97.7 F Pulse Rate 84 85 90 Respiratory Rate 20 33 H Blood Pressure 127/55 L 127/55 L Pulse Oximetry 98 99 03/20/18 10:41 03/20/18 11:32 03/20/18 12:17 Temperature Pulse Rate Respiratory Rate 18 28 H Blood Pressure Pulse Oximetry 99 Intake & Output 03/19/18 03/20/18 03/20/18 18:59 06:59 18:59 Intake Total 1940 / 1940 4450 / 4450 1100 / 1100 Output Total 850 / 850 1150 / 1150 Balance 1090 / 1090 3300 / 3300 1100 / 1100 Weight 78 kg Intake: IV 1300 / 1300 4050 / 4050 1000 / 1000 LR 1000 mL Inj 1,000 ML @ 200 1200 / 1200 3000 / 3000 1000 / 1000 mls/hr IV.CONT .Q5H [facility] Rx#: [id number] NS Inj 250 ML @ 15 mls/hr IV. 50 / 50 SIG ONCE [facility] Rx#:[id number] Rocephin Inj 1,000 MG In NS Inj 100 / 100 100 ML @ 200 mls/hr IV.SIG Q24H [facility] Rx#:[id number] Oral 240 / 240 400 / 400 Other 100 / 100 Rbc As-3 Leukoreduced Unit 100 / 100 [id number] Intake (Blood Product) Amt 400 / 400 0 / 0 Rbc As-3 Leukoreduced Unit 0 / 0 [id number] Rbc As-3 Leukoreduced Unit 400 / 400 [id number] Output: Urine 850 / 850 1150 / 1150 Other: # Incontinent Voids 2 # Bowel Movements 0 0 Result Diagrams: 03/20/18 14:30 03/20/18 05:50 Laboratory Results: Laboratory Results - last 24 hr 03/19/18 03/19/18 03/20/18 08:10 13:45 05:50 WBC RBC Hgb Hct MCV MCH MCHC RDW Plt Count MPV Prelim Diff (Auto) Neut % (Auto) Lymph % (Auto) [place] % (Auto) Eos % (Auto) Baso % (Auto) Neut # (Auto) Lymph # (Auto) [place] # (Auto) Eos # (Auto) Baso # (Auto) WBC Differential Seg Neuts % (Manual) Band Neuts % (Manual) Lymphocytes % (Manual) Monocytes % (Manual) Myelocytes % (Man) Abs Neuts (Manual) Nucleated RBCs/100 WBC Differential Comment Platelet Estimate Platelet Morphology Basophilic Stippling Pappenheimer Bodies Sickle Cells Target Cells Ovalocytes Sibley-Pepin Bodies Sodium 140 Potassium 3.3 L Chloride 107 Carbon Dioxide 26.6 Anion Gap 6 BUN 4 L Creatinine 0.45 L Estimated GFR Greater than 89 Random Glucose 80 Calcium 8.1 L Lactate Dehydrogenase 640 H Nasal Screen MRSA (PCR) Not detected MTS Gel Crossmatch See Detail 03/20/18 03/20/18 05:50 06:38 WBC 21.0 H RBC 1.95 L Hgb 6.2 L* Hct 18.0 L* MCV 92.1 MCH 31.7 MCHC 34.4 RDW 19.7 H Plt Count 383 MPV 7.9 Prelim Diff (Auto) Slide review pending Neut % (Auto) 67.5 Lymph % (Auto) 21.4 [place] % (Auto) 9.8 H Eos % (Auto) 1.1 Baso % (Auto) 0.2 Neut # (Auto) 14.2 H Lymph # (Auto) 4.5 [place] # (Auto) 2.1 H Eos # (Auto) 0.2 Baso # (Auto) 0.1 WBC Differential Manual diff final Seg Neuts % (Manual) 77 H Band Neuts % (Manual) 1 Lymphocytes % (Manual) 16 Monocytes % (Manual) 5 Myelocytes % (Man) 1 H Abs Neuts (Manual) 16.6 H Nucleated RBCs/100 WBC 11 H Differential Comment . Platelet Estimate Normal Platelet Morphology Normal Basophilic Stippling Moderate H Pappenheimer Bodies Present H Sickle Cells 1+ H Target Cells 1+ H Ovalocytes 2+ H Sibley-Pepin Bodies Present H Sodium Potassium Chloride Carbon Dioxide Anion Gap BUN Creatinine Estimated GFR Random Glucose Calcium Lactate Dehydrogenase Nasal Screen MRSA (PCR) MTS Gel Crossmatch See Detail Culture Results: Microbiology 03/18/18 12:55 Aerobic Blood Culture - Preliminary Blood - Peripheral No growth in 2 days Anaerobic Blood Culture - Preliminary No growth in 2 days 03/18/18 12:40 Aerobic Blood Culture - Preliminary Blood - Peripheral No growth in 2 days Anaerobic Blood Culture - Preliminary No growth in 2 days 03/18/18 14:25 Influenza Types A,B Antigen - Final Nasal Wash Negative for FLU A and B antigen Infection due to influenza A or B cannot be ruled out since the antigen present in the sample may be below the detection limit of the test. Medications: Active Medications Generic Name Dose Route Start Last Admin Trade Name Freq PRN Reason Stop Dose Admin Acetaminophen 650 mg 03/18/18 21:58 03/19/18 08:06 Tylenol PO 650 mg Q6H PRN Administration FEVER > 100.4 Acetaminophen 650 mg 03/19/18 07:43 03/20/18 08:51 Tylenol PO 650 mg Q4H PRN Administration SEE LABEL COMMENTS Hydrocodone Bitart/Acetaminophen 1 tab 03/18/18 14:53 03/19/18 14:56 [place] 5/325 PO 1 tab Q4H PRN Administration PAIN SCALE 1 TO 5 Albuterol 1 ampul 03/19/18 08:01 03/19/18 08:35 Duoneb Neb (Prn) NEB 1 ampul Q4HR NEB PRN Administration wheezing/SOB Azithromycin 250 mg 03/19/18 12:00 03/20/18 08:51 Zithromax PO 250 mg DAILY [facility]STELA Administration Diphenhydramine HCl 25 mg 03/18/18 14:47 03/19/18 11:04 Benadryl PO 25 mg Q4H PRN Administration ITCHING Diphenhydramine HCl 25 mg 03/19/18 07:43 03/20/18 08:51 Benadryl PO 25 mg Q4H PRN Administration SEE LABEL COMMENTS Docusate Sodium 100 mg 03/18/18 21:00 03/20/18 08:51 Colace PO Not Given BID CRISTELA Enoxaparin Sodium 40 mg 03/19/18 21:00 03/19/18 20:21 Lovenox Inj SQ 40 mg Q24H [facility] Administration Folic Acid 1 mg 03/19/18 09:00 03/20/18 08:51 Folic Acid PO 1 mg DAILY CRISTELA Administration Ceftriaxone Sodium 1,000 mg/ 100 mls @ 200 mls/hr 03/19/18 14:00 03/19/18 16: 42 Sodium Chloride IV.SIG Infused Q24H [facility] Infusion Lactated Ringer's 1,000 mls @ 200 mls/hr 03/18/18 21:00 03/20/18 10:42 Lr 1000 Ml Inj IV.CONT 200 mls/hr .Q5H [facility] Administration Hydromorphone/Sodium Chloride 6 mg in 30 mls @ 2.5 mls/hr 03/19/18 15:48 11:25 Dilaudid Container Maker Inj SPORTS BROADCASTER 2.5 mls/hr UNSCH PRN Administration prn pain 0.5 MG/HR Sodium Chloride 250 mls @ 15 mls/hr 03/20/18 07:00 03/20/18 09:20 Ns Inj IV.SIG 03/20/18 23:39 15 mls/hr ONCE CRISTELA Administration Ketorolac Tromethamine 30 mg 03/20/18 12:00 03/20/18 12:02 Toradol Inj IV.PUSH 03/21/18 00:00 30 mg Q6H [facility] Administration Oxycodone HCl 10 mg 03/19/18 10:00 03/20/18 09:14 Roxicodone PO 10 mg Q6H [facility] Administration Sodium Chloride 2 ml 03/18/18 14:47 03/20/18 08:51 Ns Flush IV.FLUSH 2 ml PRN PRN Administration FLUSH AFTER USING IV ACCESS Sodium Chloride 2 ml 03/18/18 21:00 03/20/18 08:51 Ns Flush IV.FLUSH 2 ml BID CRISTELA Administration Objective Remarks: GENERAL: Young female lying in bed. SKIN: Warm and dry. HEAD: Normocephalic. EYES: No scleral icterus. No injection or drainage. NECK: Supple, trachea midline. No JVD or lymphadenopathy. CARDIOVASCULAR: Normal rate and rhythm without murmurs. RESPIRATORY: Anterior breath sounds clear, equal bilaterally. RR 23 bpm. GASTROINTESTINAL: Abdomen soft, non-tender, nondistended. EXTREMITIES: No cyanosis, or edema. MUSCULOSKELETAL: Adequate muscle tone. NEUROLOGICAL: No obvious focal deficit. Lethargic at times. Assessment/Plan - Plan 22-year-old female admitted with shortness of breath and sickle cell crisis 1. Sickle Cell pain crisis. Currently on Dilaudid SPORTS BROADCASTER pump and Toradol. Monitor closely for oversedation. 2. Hgb 6.2, s/p 1unit pRBC yesterday, pt received another unit this a.m. 3. Continue supportive care. - Attending Statement The exam, history, and the medical decision-making described in the above note were completed with the assistance of the mid-level provider. I reviewed and agree with the findings presented. I attest that I had a [id number] encounter with the patient on the same day, and personally performed and documented my assessment and findings in the medical record. Patient is still in severe pain She is on Dilaudid SPORTS BROADCASTER pump and Toradol [id number] Continue hydration, antibiotic, folic acid and oxygen Packed RBC 1 unit today Monitor CBC
[2018-03-20 14:53] LABS: Hemoglobin 7.2 gm/dL (11.6-15.3)
--- NOTE | 2018-03-20 15:54 | P.PNIM ---
Subjective Interval history: Nursing reports that the patient is complaining of pain and asking for pain medication. When I walk into the room the patient is calm, and when I start talking to her she then appears to enter a distressed state. Just upon examining her when I lightly touch her hands she complains of intense pain. When I touch her feet she again complains of intense pain that is clearly out of proportion to the tactile stimuli. Since her line gets occluded and her Dilaudid pump started beeping, I told her to extend her arms and she hesitates complaining of pain. Physical Exam Vital signs: Vital Signs 03/19/18 16:00 03/19/18 17:04 03/19/18 20:00 Temperature 98.6 F Pulse Rate 104 H 98 H Respiratory Rate 18 15 Blood Pressure 112/59 L Pulse Oximetry 100 03/19/18 20:30 03/19/18 21:47 03/19/18 22:00 Temperature 99.3 F Pulse Rate 101 H 93 H Respiratory Rate 25 H 45 H Blood Pressure Pulse Oximetry 100 94 L 100 03/19/18 22:05 03/19/18 23:00 03/20/18 00:00 Temperature 99.6 F Pulse Rate 98 H 93 H 99 H Respiratory Rate 37 H 32 H 38 H Blood Pressure 145/63 H Pulse Oximetry 100 100 95 03/20/18 00:01 03/20/18 01:00 03/20/18 02:00 Temperature Pulse Rate 92 H 87 100 H Respiratory Rate 21 19 28 H Blood Pressure 102/56 L Pulse Oximetry 95 99 100 03/20/18 02:06 03/20/18 03:00 03/20/18 04:00 Temperature 98.8 F Pulse Rate 101 H 96 H 96 H Respiratory Rate 58 H 31 H 29 H Blood Pressure 117/61 139/80 Pulse Oximetry 100 99 98 03/20/18 04:06 03/20/18 05:00 03/20/18 05:48 Temperature Pulse Rate 92 H 100 H Respiratory Rate 47 H 24 32 H Blood Pressure 139/80 Pulse Oximetry 96 98 03/20/18 06:00 03/20/18 06:22 03/20/18 07:00 Temperature Pulse Rate 94 H 95 H Respiratory Rate 16 28 H 32 H Blood Pressure 127/58 L Pulse Oximetry 97 95 03/20/18 08:00 03/20/18 08:49 03/20/18 09:00 Temperature 98.0 F Pulse Rate 91 H 96 H 95 H Respiratory Rate 26 H 41 H 38 H Blood Pressure 149/63 H Pulse Oximetry 93 L 79 L 96 03/20/18 09:16 03/20/18 09:34 03/20/18 09:36 Temperature 98 F 97.7 F Pulse Rate 83 84 85 Respiratory Rate 19 20 33 H Blood Pressure 149/63 H 127/55 L 127/55 L Pulse Oximetry 99 98 99 03/20/18 10:00 03/20/18 10:41 03/20/18 11:00 Temperature Pulse Rate 90 104 H Respiratory Rate 25 H 18 29 H Blood Pressure Pulse Oximetry 91 L 03/20/18 11:32 03/20/18 12:00 03/20/18 12:07 Temperature 97.7 F Pulse Rate 93 H 80 Respiratory Rate 28 H 21 Blood Pressure 130/60 Pulse Oximetry 99 100 99 03/20/18 12:17 03/20/18 13:00 03/20/18 14:00 Temperature Pulse Rate 83 82 Respiratory Rate 28 H 7 L 28 H Blood Pressure Pulse Oximetry 87 L 100 03/20/18 14:27 03/20/18 15:00 Temperature Pulse Rate 79 80 Respiratory Rate 12 25 H Blood Pressure 136/62 Pulse Oximetry 100 100 Intake & Output 03/19/18 03/20/18 03/20/18 18:59 06:59 18:59 Intake Total 1940 / 1940 4450 / 4450 1100 / 1100 Output Total 850 / 850 1150 / 1150 Balance 1090 / 1090 3300 / 3300 1100 / 1100 Weight 78 kg Intake: IV 1300 / 1300 4050 / 4050 1000 / 1000 LR 1000 mL Inj 1,000 ML @ 200 1200 / 1200 3000 / 3000 1000 / 1000 mls/hr IV.CONT .Q5H [facility] Rx#: [id number] NS Inj 250 ML @ 15 mls/hr IV. 50 / 50 SIG ONCE [facility] Rx#:[id number] Rocephin Inj 1,000 MG In NS Inj 100 / 100 100 ML @ 200 mls/hr IV.SIG Q24H [facility] Rx#:[id number] Oral 240 / 240 400 / 400 Other 100 / 100 Rbc As-3 Leukoreduced Unit 100 / 100 [id number] Intake (Blood Product) Amt 400 / 400 0 / 0 Rbc As-3 Leukoreduced Unit 0 / 0 [id number] Rbc As-3 Leukoreduced Unit 400 / 400 [id number] Output: Urine 850 / 850 1150 / 1150 Other: # Incontinent Voids 2 # Bowel Movements 0 0 Narrative: Heart exam the patient has she is flinching when I just listen to her with my stethoscope over her lung bautista which are clear and she has unlabored breaths otherwise Heart sounds regular rate rhythm No lower extremity edema Awake and alert, appears to be in distress while I am in the room Results - Labs CBC & Chem 7: 03/20/18 14:30 03/20/18 05:50 Laboratory Results - last 24 hr 03/19/18 03/19/18 03/20/18 08:10 13:45 05:50 WBC RBC Hgb Hct MCV MCH MCHC RDW Plt Count MPV Prelim Diff (Auto) Neut % (Auto) Lymph % (Auto) [place] % (Auto) Eos % (Auto) Baso % (Auto) Neut # (Auto) Lymph # (Auto) [place] # (Auto) Eos # (Auto) Baso # (Auto) WBC Differential Seg Neuts % (Manual) Band Neuts % (Manual) Lymphocytes % (Manual) Monocytes % (Manual) Myelocytes % (Man) Abs Neuts (Manual) Nucleated RBCs/100 WBC Differential Comment Platelet Estimate Platelet Morphology Basophilic Stippling Pappenheimer Bodies Sickle Cells Target Cells Ovalocytes [place] Bodies Sodium 140 Potassium 3.3 L Chloride 107 Carbon Dioxide 26.6 Anion Gap 6 BUN 4 L Creatinine 0.45 L Estimated GFR Greater than 89 Random Glucose 80 Calcium 8.1 L Magnesium Lactate Dehydrogenase 640 H Nasal Screen MRSA (PCR) Not detected MTS Gel Crossmatch See Detail 03/20/18 03/20/18 03/20/18 05:50 05:50 06:38 WBC 21.0 H RBC 1.95 L Hgb 6.2 L* Hct 18.0 L* MCV 92.1 MCH 31.7 MCHC 34.4 RDW 19.7 H Plt Count 383 MPV 7.9 Prelim Diff (Auto) Slide review pending Neut % (Auto) 67.5 Lymph % (Auto) 21.4 [place] % (Auto) 9.8 H Eos % (Auto) 1.1 Baso % (Auto) 0.2 Neut # (Auto) 14.2 H Lymph # (Auto) 4.5 [place] # (Auto) 2.1 H Eos # (Auto) 0.2 Baso # (Auto) 0.1 WBC Differential Manual diff final Seg Neuts % (Manual) 77 H Band Neuts % (Manual) 1 Lymphocytes % (Manual) 16 Monocytes % (Manual) 5 Myelocytes % (Man) 1 H Abs Neuts (Manual) 16.6 H Nucleated RBCs/100 WBC 11 H Differential Comment . Platelet Estimate Normal Platelet Morphology Normal Basophilic Stippling Moderate H Pappenheimer Bodies Present H Sickle Cells 1+ H Target Cells 1+ H Ovalocytes 2+ H [place] Bodies Present H Sodium Potassium Chloride Carbon Dioxide Anion Gap BUN Creatinine Estimated GFR Random Glucose Calcium Magnesium 1.8 Lactate Dehydrogenase Nasal Screen MRSA (PCR) MTS Gel Crossmatch See Detail 03/20/18 14:30 WBC RBC Hgb 7.2 L Hct 20.0 L* MCV MCH MCHC RDW Plt Count MPV Prelim Diff (Auto) Neut % (Auto) Lymph % (Auto) [place] % (Auto) Eos % (Auto) Baso % (Auto) Neut # (Auto) Lymph # (Auto) [place] # (Auto) Eos # (Auto) Baso # (Auto) WBC Differential Seg Neuts % (Manual) Band Neuts % (Manual) Lymphocytes % (Manual) Monocytes % (Manual) Myelocytes % (Man) Abs Neuts (Manual) Nucleated RBCs/100 WBC Differential Comment Platelet Estimate Platelet Morphology Basophilic Stippling Pappenheimer Bodies Sickle Cells Target Cells Ovalocytes [place] Bodies Sodium Potassium Chloride Carbon Dioxide Anion Gap BUN Creatinine Estimated GFR Random Glucose Calcium Magnesium Lactate Dehydrogenase Nasal Screen MRSA (PCR) MTS Gel Crossmatch Microbiology 03/18/18 12:55 Blood - Peripheral Aerobic Blood Culture - Preliminary No growth in 2 days 03/18/18 12:55 Blood - Peripheral Anaerobic Blood Culture - Preliminary No growth in 2 days 03/18/18 12:40 Blood - Peripheral Aerobic Blood Culture - Preliminary No growth in 2 days 03/18/18 12:40 Blood - Peripheral Anaerobic Blood Culture - Preliminary No growth in 2 days Assessment and Plan - Assessment (1) Anemia Code(s): D64.9 - Anemia, unspecified Status: Acute (2) SIRS (systemic inflammatory response syndrome) Code(s): R65.10 - Systemic inflammatory response syndrome (SIRS) of non- infectious origin without acute organ dysfunction Status: Acute - Plan This patient is a 22 y/o F with a dx of Sickle cell anemia. Recently discharged from [facility] for sickle cell crisis, presenting to our hospital for continuing polyarticular pain, shortness of breath and cough. She follows up with Dr. Moody at [facility] in [place]. Acute sickle cell pain crisis- - IV fluids, continue home medication Pain control Hematology following, has the patient on a pain pump -Undergoing a transfusion earlier this morning, will recheck in a.m. -If drug screen comes back positive, will recommend rapid transition from Dilaudid ASSISTANT BRAND MANAGER to diluted IV Dilaudid slow infusion the patient's pain or her reaction to tactile stimuli seems to be out of proportion Leukocytosis Possibly stress-induced with no definitive source of infection, continue antibiotics, improving
[2018-03-20 19:12] LABS: Amphetamine Screen,Urine Neg (Neg); Barbiturate Screen,Urine Neg (Neg); Cannabinoid Screen,Urine Pos (Neg); Cocaine Screen,Urine Neg (Neg)
[2018-03-20 19:14] LABS: Opiate Screen,Urine Pos (Neg)
[2018-03-20] MEDS: Enoxaparin Inj 40 MG/0.4 ML Syringe SQ SCH (21:51)
[2018-03-21] MEDS: Ketorolac Inj 30 MG/ML (IVP) Vial IV.PUSH SCH (00:52)
[2018-03-21] MEDS: HYDROmorphone PCA Inj 6 MG/30 ML PCA.VIAL PCA PRN ×4 (04:49→23:31)
[2018-03-21 04:58] LABS: Baso # (Auto) 0.2 th/mm3 (0.0-0.2); Eos # (Auto) 0.4 th/mm3 (0.0-0.4); Eos % (Auto) 2.5 % (0.0-4.0); Lymph % (Auto) 17.2 % (9.0-44.0); Mean Corpuscular HGB Conc 33.6 % (32.0-36.0); Mean Corpuscular Hemoglobin 30.6 pg (27.0-34.0); Mean Corpuscular Volume 90.9 fL (80.0-100.0); Mono # (Auto) 1.4 th/mm3 (0.0-0.9); Neut # (Auto) 12.5 th/mm3 (1.8-7.7); Neut % (Auto) 71.3 % (16.0-70.0); Platelet Count 381 th/mm3 (150-450); Red Blood Count 2.21 mil/mm3 (4.00-5.30); White Blood Count 17.5 th/mm3 (4.0-11.0)
[2018-03-21 05:03] LABS: Hematocrit 20.1 % (35.0-46.0); Hemoglobin 6.7 gm/dL (11.6-15.3)
[2018-03-21] MEDS ORDERED: Sodium Chlor 0.9% Inj 250 ML IV.SIG SCH (07:00)
[2018-03-21 07:45] LABS: Lymphocytes 28 % (9-44); Monocytes 3 % (0-8); Platelet Estimate Normal (Normal); Platelet Morphology Normal (Normal); Tallied Nucleated RBC 11 (0-0); Target Cells 1+
[2018-03-21 07:46] LABS: Howell-Jolly Bodies Present; Pappenheimer Bodies Present
[2018-03-21 07:48] LABS: Sickle Cells 1+
[2018-03-21 07:49] LABS: Polychromasia 2.2 % (0.0-1.9)
[2018-03-21] MEDS: Docusate Sodium 100 MG Capsule PO SCH ×2 (09:11→20:52)
[2018-03-21] MEDS: Azithromycin 250 MG Tablet PO SCH (09:11)
[2018-03-21] MEDS: Folic Acid 1 MG Tablet PO SCH (09:11)
--- NOTE | 2018-03-21 15:13 | P.PNONC ---
Subjective Interval history: Patient is complaining of a sharp pain that she localizes to her ribs just under her left breast. She has a warm compress that she is holding in position with her right hand. She tells me that she feels 2 lumps in that area. As I attempt to examine her she refuses to move her hand from the area, screaming out that she first has to move the left arm which she has up behind her head. She then asked her mother to assist in moving her other arm, patient is able to move her arm and this appears to be out of context with her pain. She states that her pain is worse with movement, including the movement of breathing. It is tender to palpation. During my examination her mother is getting her lunch ready for her to eat. Towards the end of my examination the patient is calm and no longer thriving in pain. She is getting ready to eat her lunch. Objective Vital Signs/Intake & Output: Vital Signs 03/20/18 16:00 03/20/18 17:00 03/20/18 18:00 Temperature 98.7 F Pulse Rate 84 76 91 H Respiratory Rate 26 H 11 L 25 H Blood Pressure 145/65 H 127/58 L Pulse Oximetry 100 100 98 03/20/18 19:00 03/20/18 20:00 03/20/18 20:05 Temperature 98.5 F Pulse Rate 83 74 66 Respiratory Rate 24 11 L 15 Blood Pressure 132/58 L 132/58 L Pulse Oximetry 96 100 100 03/20/18 21:00 03/20/18 21:55 03/20/18 21:56 Temperature Pulse Rate 81 80 79 Respiratory Rate 32 H 19 22 Blood Pressure 139/87 146/63 H Pulse Oximetry 93 L 84 L 100 03/20/18 22:00 03/20/18 23:00 03/21/18 00:00 Temperature 99.8 F H Pulse Rate 79 86 94 H Respiratory Rate 39 H 20 34 H Blood Pressure 139/62 Pulse Oximetry 80 L 95 90 L 03/21/18 00:16 03/21/18 01:00 03/21/18 02:00 Temperature Pulse Rate 93 H 94 H 89 Respiratory Rate 36 H 20 43 H Blood Pressure 139/62 Pulse Oximetry 96 93 L 97 03/21/18 02:26 03/21/18 03:00 03/21/18 03:36 Temperature Pulse Rate 86 89 70 Respiratory Rate 21 30 H 20 Blood Pressure 128/57 L 126/56 L Pulse Oximetry 92 L 90 L 98 03/21/18 04:00 03/21/18 05:00 03/21/18 06:00 Temperature 98.2 F Pulse Rate 78 86 81 Respiratory Rate 24 16 27 H Blood Pressure 126/56 L Pulse Oximetry 93 L 92 L 92 L 03/21/18 06:11 03/21/18 07:00 03/21/18 08:00 Temperature 98.2 F Pulse Rate 87 89 91 H Respiratory Rate 31 H 4 L 31 H Blood Pressure 114/56 L 112/58 L Pulse Oximetry 96 90 L 93 L 03/21/18 08:44 03/21/18 08:46 03/21/18 09:00 Temperature 98.2 F Pulse Rate 94 H 88 99 H Respiratory Rate 39 H 20 33 H Blood Pressure 112/58 L 112/58 L Pulse Oximetry 95 95 03/21/18 09:06 03/21/18 09:24 03/21/18 09:25 Temperature 98.2 F 99.3 F Pulse Rate 88 91 H 94 H Respiratory Rate 20 15 34 H Blood Pressure 112/58 L 156/67 H 156/67 H Pulse Oximetry 96 03/21/18 10:00 03/21/18 11:00 03/21/18 11:35 Temperature Pulse Rate 90 86 Respiratory Rate 34 H 23 21 Blood Pressure Pulse Oximetry 94 L 97 03/21/18 12:00 03/21/18 13:29 03/21/18 14:00 Temperature 98.1 F Pulse Rate 74 80 Respiratory Rate 13 24 Blood Pressure Pulse Oximetry 99 Intake & Output 03/20/18 03/21/18 03/21/18 18:59 06:59 18:59 Intake Total 2550 / 2550 4050 / 4050 100 / 100 Output Total 700 / 700 2400 / 2400 Balance 1850 / 1850 1650 / 1650 100 / 100 Weight 79.5 kg Intake: IV 1200 / 1200 3250 / 3250 100 / 100 LR 1000 mL Inj 1,000 ML @ 200 1100 / 1100 3000 / 3000 mls/hr IV.CONT .Q5H [facility] Rx#: [id number] NS Inj 250 ML @ 15 mls/hr IV. 250 / 250 SIG ONCE [facility] Rx#:[id number] Rocephin Inj 1,000 MG In NS Inj 100 / 100 100 / 100 100 ML @ 200 mls/hr IV.SIG Q24H [facility] Rx#:[id number] Oral 1000 / 1000 800 / 800 Other 350 / 350 Rbc As-3 Leukoreduced Unit 100 / 100 [id number] Intake (Blood Product) Amt 0 / 0 0 / 0 Rbc As-3 Leukoreduced Unit 0 / 0 [id number] Rbc As-3 Leukoreduced Unit 0 / 0 [id number] Output: Urine 700 / 700 2400 / 2400 Other: Other Intake Source Saline Solution # Incontinent Voids 1 1 # Bowel Movements 0 Result Diagrams: 03/21/18 15:30 03/20/18 05:50 Laboratory Results: Laboratory Results - last 24 hr 03/20/18 03/20/18 03/21/18 06:38 17:12 04:35 WBC 17.5 H RBC 2.21 L Hgb 6.7 L* Hct 20.1 L* MCV 90.9 MCH 30.6 MCHC 33.6 RDW 18.0 H Plt Count 381 MPV 8.0 Prelim Diff (Auto) Slide review pending Neut % (Auto) 71.3 H Lymph % (Auto) 17.2 [place] % (Auto) 8.0 Eos % (Auto) 2.5 Baso % (Auto) 1.0 Neut # (Auto) 12.5 H Lymph # (Auto) 3.0 [place] # (Auto) 1.4 H Eos # (Auto) 0.4 Baso # (Auto) 0.2 WBC Differential Manual diff final Seg Neuts % (Manual) 65 Band Neuts % (Manual) 4 Lymphocytes % (Manual) 28 Monocytes % (Manual) 3 Abs Neuts (Manual) 12.1 H Nucleated RBCs/100 WBC 11 H Differential Comment . Platelet Estimate Normal Platelet Morphology Normal Polychromasia 2.2 H Pappenheimer Bodies Present H Sickle Cells 1+ H Target Cells 1+ H [place] Bodies Present H Urine Opiates Screen Pos H Ur Barbiturates Screen Neg Ur Amphetamines Screen Neg U Benzodiazepines Scrn Neg Urine Cocaine Screen Neg U Cannabinoids Screen Pos H Blood Type Antibody Screen MTS Gel Crossmatch See Detail 03/21/18 06:35 WBC RBC Hgb Hct MCV MCH MCHC RDW Plt Count MPV Prelim Diff (Auto) Neut % (Auto) Lymph % (Auto) [place] % (Auto) Eos % (Auto) Baso % (Auto) Neut # (Auto) Lymph # (Auto) [place] # (Auto) Eos # (Auto) Baso # (Auto) WBC Differential Seg Neuts % (Manual) Band Neuts % (Manual) Lymphocytes % (Manual) Monocytes % (Manual) Abs Neuts (Manual) Nucleated RBCs/100 WBC Differential Comment Platelet Estimate Platelet Morphology Polychromasia Pappenheimer Bodies Sickle Cells Target Cells [place] Bodies Urine Opiates Screen Ur Barbiturates Screen Ur Amphetamines Screen U Benzodiazepines Scrn Urine Cocaine Screen U Cannabinoids Screen Blood Type A Positive Antibody Screen Negative MTS Gel Crossmatch See Detail Culture Results: Microbiology 03/18/18 12:55 Aerobic Blood Culture - Preliminary Blood - Peripheral No growth in 3 days Anaerobic Blood Culture - Preliminary No growth in 3 days 03/18/18 12:40 Aerobic Blood Culture - Preliminary Blood - Peripheral No growth in 3 days Anaerobic Blood Culture - Preliminary No growth in 3 days 03/18/18 14:25 Influenza Types A,B Antigen - Final Nasal Wash Negative for FLU A and B antigen Infection due to influenza A or B cannot be ruled out since the antigen present in the sample may be below the detection limit of the test. Medications: Active Medications Generic Name Dose Route Start Last Admin Trade Name Freq PRN Reason Stop Dose Admin Acetaminophen 650 mg 03/18/18 21:58 03/19/18 08:06 Tylenol PO 650 mg Q6H PRN Administration FEVER > 100.4 Acetaminophen 650 mg 03/19/18 07:43 03/20/18 08:51 Tylenol PO 650 mg Q4H PRN Administration SEE LABEL COMMENTS Hydrocodone Bitart/Acetaminophen 1 tab 03/18/18 14:53 03/19/18 14:56 [place] 5/325 PO 1 tab Q4H PRN Administration PAIN SCALE 1 TO 5 Albuterol 1 ampul 03/19/18 08:01 03/19/18 08:35 Duoneb Neb (Prn) NEB 1 ampul Q4HR NEB PRN Administration wheezing/SOB Azithromycin 250 mg 03/19/18 12:00 03/21/18 09:11 Zithromax PO 250 mg DAILY [facility] Administration Diphenhydramine HCl 25 mg 03/18/18 14:47 03/19/18 11:04 Benadryl PO 25 mg Q4H PRN Administration ITCHING Docusate Sodium 100 mg 03/18/18 21:00 03/21/18 09:11 Colace PO Not Given BID [facility] Enoxaparin Sodium 40 mg 03/19/18 21:00 03/20/18 21:51 Lovenox Inj SQ 40 mg Q24H [facility] Administration Folic Acid 1 mg 03/19/18 09:00 03/21/18 09:11 Folic Acid PO 1 mg DAILY [facility]A Administration Ceftriaxone Sodium 1,000 mg/ 100 mls @ 200 mls/hr 03/19/18 14:00 03/21/18 14: 42 Sodium Chloride IV.SIG Infused Q24H [facility] Infusion Lactated Ringer's 1,000 mls @ 200 mls/hr 03/18/18 21:00 03/21/18 15:04 Lr 1000 Ml Inj IV.CONT Not Given .Q5H [facility] Hydromorphone/Sodium Chloride 6 mg in 30 mls @ 2.5 mls/hr 03/19/18 15:48 11:02 Dilaudid Machine Clothing Replacer Inj LIVING SUPERVISOR 2.5 mls/hr UNSCH PRN Administration prn pain 0.5 MG/HR Sodium Chloride 250 mls @ 15 mls/hr 03/21/18 07:00 03/21/18 09:11 Ns Inj IV.SIG 03/21/18 23:39 15 mls/hr ONCE [facility] Administration Oxycodone HCl 10 mg 03/19/18 10:00 03/21/18 11:07 Roxicodone PO 10 mg Q6H [facility] Administration Sodium Chloride 2 ml 03/18/18 14:47 03/20/18 08:51 Ns Flush IV.FLUSH 2 ml PRN PRN Administration FLUSH AFTER USING IV ACCESS Sodium Chloride 2 ml 03/18/18 21:00 03/21/18 09:11 Ns Flush IV.FLUSH 2 ml BID [facility] Administration Objective Remarks: GENERAL: Young female lying in bed. SKIN: Warm and dry. HEAD: Normocephalic. EYES: No scleral icterus. No injection or drainage. NECK: Supple, trachea midline. No JVD or lymphadenopathy. CARDIOVASCULAR: Normal rate and rhythm without murmurs. RESPIRATORY: Anterior breath sounds clear, equal bilaterally. Nonlabored at rest. Left lower ribs tender to palpation no lumps noted. No skin changes. GASTROINTESTINAL: Abdomen soft, non-tender, nondistended. EXTREMITIES: No cyanosis, or edema. MUSCULOSKELETAL: Adequate muscle tone. NEUROLOGICAL: No obvious focal deficit. Assessment/Plan - Plan 22-year-old female admitted with shortness of breath and sickle cell crisis 1. Sickle Cell pain crisis. Currently on Dilaudid LIVING SUPERVISOR pump and Toradol. Monitor closely for oversedation. 2. Hgb 6.7, s/p 1unit pRBC yesterday. 3. Current pain appears to be a costochondritis, patient is on anti- inflammatory medications. EKG was performed. She remains on Dilaudid LIVING SUPERVISOR pump and Toradol. - Attending Statement The exam, history, and the medical decision-making described in the above note were completed with the assistance of the mid-level provider. I reviewed and agree with the findings presented. I attest that I had a [id number] encounter with the patient on the same day, and personally performed and documented my assessment and findings in the medical record. Patient is complaining of generalized pain but mostly in the legs and the back Continue LIVING SUPERVISOR Dilaudid and Toradol Packed RBC today Monitor CBC Hemolytic painful crisis
--- NOTE | 2018-03-21 15:18 | P.PNIM ---
Subjective Interval history: Still complained of significant pain. No shortness of breath. Admits she smoking marijuana. Was taking p.o. Dilaudid at home for pain chronic pain. Physical Exam Vital signs: Last Vital Signs Temp 98.1 F 03/21/18 12:00 Pulse 80 03/21/18 14:00 Resp 24 03/21/18 13:29 BP 156/67 H 03/21/18 09:25 Pulse Ox 99 03/21/18 12:00 Intake & Output 03/19/18 03/20/18 03/21/18 03/22/18 06:59 06:59 06:59 06:59 Intake Total 2390 / 2390 6390 / 6390 6600 / 6600 100 / 100 Output Total 1999 / 2000 3100 / 3100 Balance 2390 / 2390 4390 / 4390 3500 / 3500 100 / 100 Weight 76.2 kg 78 kg 79.5 kg Narrative: Generalwell-nourished well-developed female no acute distress Cardiovascularregular rate and rhythm Just putting stethoscope on her chest wall because her to flinch in pain. Lungsclear to auscultation bilaterally Abdomen soft nontender Neurological exam she was alert and oriented x4 for to person place time and situation. She did not want to move her arms and legs too much due to subjective complaints of pain. Results Labs CBC & Chem 7: 03/21/18 04:35 03/20/18 05:50 Labs: Microbiology 03/18/18 12:55 Blood - Peripheral Aerobic Blood Culture - Preliminary No growth in 3 days 03/18/18 12:55 Blood - Peripheral Anaerobic Blood Culture - Preliminary No growth in 3 days 03/18/18 12:40 Blood - Peripheral Aerobic Blood Culture - Preliminary No growth in 3 days 03/18/18 12:40 Blood - Peripheral Anaerobic Blood Culture - Preliminary No growth in 3 days Assessment and Plan (1) Acute sickle cell crisis: Code(s): D57.00 - Hb-SS disease with crisis, unspecified Status: Acute Plan This patient is a 22 y/o F with a dx of Sickle cell anemia. Recently discharged from [place] for sickle cell crisis, presenting to our hospital for continuing polyarticular pain, shortness of breath and cough. She follows up with Dr. Moody at [facility] in [place]. Acute sickle cell pain crisis- - IV fluids, continue home medication Pain control with Dilaudid COMMERCIAL INSULATOR per hematology -Undergoing a transfusion earlier this morning, this will be this third unit of blood. Repeat hemoglobin the morning. Urine drug screen positive for cannabinoids and patient admitted to using marijuana. Leukocytosis Possibly stress-induced with no definitive source of infection, continue empiric ceftriaxone and Zithromax antibiotics, improving and trending down. Sickle cell anemiamonitor hemoglobin after transfusion. Chest wall painreproducible likely due to musculoskeletal, no changes in EKG and cardiac monitoring in the ICU. Will try Lidoderm patch. Oxygen saturation 99 200% room air. Encouraged her to start getting up and moving as patient's high risk for VTE. Encourage incentive parameter use. DVT prophylaxis Lovenox Progress Note: Quality VTE Deep Vein Thrombosis/Pulmonary Embolism Present on Admission: No
[2018-03-21 15:46] LABS: Hematocrit 21.9 % (35.0-46.0); Hemoglobin 7.5 gm/dL (11.6-15.3)
[2018-03-21] MEDS: Lidocaine 5% Patch T-DERMAL SCH (16:15)
[2018-03-21] MEDS: Enoxaparin Inj 40 MG/0.4 ML Syringe SQ SCH (20:52)
[2018-03-22] MEDS ORDERED: Ketorolac Inj 30 MG/ML (IVP) Vial IV.PUSH ONE (01:05)
[2018-03-22 05:40] LABS: Baso # (Auto) 0.1 th/mm3 (0.0-0.2); Baso % (Auto) 0.3 % (0.0-2.0); Eos # (Auto) 0.4 th/mm3 (0.0-0.4); Eos % (Auto) 2.5 % (0.0-4.0); Hemoglobin 7.2 gm/dL (11.6-15.3); Lymph # (Auto) 4.1 th/mm3 (1.0-4.8); Lymph % (Auto) 25.9 % (9.0-44.0); Mean Corpuscular HGB Conc 34.3 % (32.0-36.0); Mean Corpuscular Hemoglobin 29.8 pg (27.0-34.0); Mean Platelet Volume 8.2 fL (7.0-11.0); Mono # (Auto) 1.4 th/mm3 (0.0-0.9); Mono % (Auto) 9.2 % (0.0-8.0); Neut # (Auto) 9.7 th/mm3 (1.8-7.7); Neut % (Auto) 62.1 % (16.0-70.0); Platelet Count 373 th/mm3 (150-450); Red Blood Count 2.42 mil/mm3 (4.00-5.30); Red Cell Distribution Width 20.5 % (11.6-17.2); White Blood Count 15.7 th/mm3 (4.0-11.0)
[2018-03-22] MEDS: HYDROmorphone PCA Inj 6 MG/30 ML PCA.VIAL PCA PRN ×3 (06:06→18:10)
[2018-03-22 06:52] LABS: Eosinophils 2 % (0-4); Lymphocytes 25 % (9-44); Monocytes 2 % (0-8); Tallied Nucleated RBC 3 (0-0)
[2018-03-22 06:53] LABS: Pappenheimer Bodies Present; Sickle Cells 1+; Target Cells 1+
[2018-03-22 06:55] LABS: Platelet Estimate Normal (Normal); Platelet Morphology Normal (Normal)
--- NOTE | 2018-03-22 07:52 | P.PNIM ---
Subjective Interval history: f/u; sickle cell painful crisis. still on IMPORT SPECIALIST pump. has some pain to the legs and arms but she says that the pain is overall has slightly improved. Physical Exam Vital signs: Last Vital Signs Temp 98.5 F 03/22/18 05:00 Pulse 72 03/22/18 06:00 Resp 24 03/22/18 06:38 BP 129/60 03/22/18 00:51 Pulse Ox 98 03/22/18 05:00 Intake & Output 03/20/18 03/21/18 03/22/18 03/23/18 06:59 06:59 06:59 06:59 Intake Total 6390 / 6390 6600 / 6600 3450 / 3450 Output Total 1999 / 1999 3100 / 3100 6250 / 6250 Balance 4390 / 4390 3500 / 3500 -2800 / -2800 Weight 78 kg 79.5 kg 77.5 kg Constitutional no acute distress Comments: but looks uncomfortable with the pain. Routine Respiratory Exam Present CTA bilaterally Routine Cardiovascular Exam Present RRR Routine Abdominal Exam Present soft Routine Extremities Exam Comments: no pedal edema. Routine Neurological Exam Present alert and oriented X3 Results Labs CBC & Chem 7: 03/22/18 04:45 03/20/18 05:50 Labs: Microbiology 03/18/18 12:55 Blood - Peripheral Aerobic Blood Culture - Preliminary No growth in 3 days 03/18/18 12:55 Blood - Peripheral Anaerobic Blood Culture - Preliminary No growth in 3 days 03/18/18 12:40 Blood - Peripheral Aerobic Blood Culture - Preliminary No growth in 3 days 03/18/18 12:40 Blood - Peripheral Anaerobic Blood Culture - Preliminary No growth in 3 days Assessment and Plan Plan Acute sickle cell pain crisis- - IV fluids, continue home medication Pain control with Dilaudid IMPORT SPECIALIST per hematology -Urine drug screen positive for cannabinoids and patient admitted to using marijuana. Leukocytosis Possibly stress-induced with no definitive source of infection, continue empiric ceftriaxone and Zithromax antibiotics, improving and trending down. Sickle cell anemiamonitor hemoglobin after transfusion. Chest wall painreproducible likely due to musculoskeletal, no changes in EKG and cardiac monitoring in the ICU. Will try Lidoderm patch. Oxygen saturation 99 200% room air. DVT prophylaxis Lovenox Progress Note: Quality VTE Deep Vein Thrombosis/Pulmonary Embolism Present on Admission: No
[2018-03-22] MEDS: Azithromycin 250 MG Tablet PO SCH (08:57)
[2018-03-22] MEDS: Docusate Sodium 100 MG Capsule PO SCH ×2 (08:57→21:24)
[2018-03-22] MEDS: Folic Acid 1 MG Tablet PO SCH (08:57)
[2018-03-22] MEDS: Lidocaine 5% Patch T-DERMAL SCH ×2 (08:57→21:46)
[2018-03-22 10:41] LABS: ABG PCO2 40 mmHg (38-42); ABG PO2 78 mmHG (61-120)
[2018-03-22 10:59] LABS: Alanine Aminotransferase 13 U/L (9-42); Albumin 2.8 g/dL (3.4-5.0); Anion Gap 5 meq/L (5-15); Aspartate Aminotransferase 17 U/L (16-38); Blood Urea Nitrogen 5 mg/dL (7-18); Calcium 8.2 mg/dL (8.5-10.1); Carbon Dioxide 28.6 meq/L (21.0-32.0); Chloride 106 meq/L (98-107); Glomerular Filtration Rate Greater Than 89 mL/min (>89); Glucose,Random 85 mg/dL (74-106); Potassium 3.4 meq/L (3.5-5.1); Sodium 140 meq/L (136-145)
[2018-03-22 11:01] LABS: Alkaline Phosphatase 55 U/L (45-117); Lactate Dehydrogenase 412 U/L (84-246); Total Protein 6.5 g/dL (6.4-8.2)
[2018-03-22 11:39] LABS: Reticulocyte Percent 6.5 % (0.4-3.0)
--- NOTE | 2018-03-22 11:55 | P.PNONC ---
Subjective Interval history: Afebrile. 97% on room air. Denies shortness of breath. Still with complaints of leg pain, arm pain and mild pain under her left breast. She reports the pain under her left breast has improved since yesterday. RN is at the bedside about to take her for CT chest. RN reports negative test. Objective Vital Signs/Intake & Output: Vital Signs 03/21/18 12:00 03/21/18 13:00 03/21/18 13:25 Temperature 98.1 F Pulse Rate 74 68 82 Respiratory Rate 13 19 25 H Blood Pressure 140/63 Pulse Oximetry 99 100 99 03/21/18 13:29 03/21/18 14:00 03/21/18 15:00 Temperature Pulse Rate 80 83 Respiratory Rate 24 36 H 20 Blood Pressure Pulse Oximetry 99 96 03/21/18 15:40 03/21/18 16:00 03/21/18 17:00 Temperature 98.3 F Pulse Rate 87 83 Respiratory Rate 16 20 13 Blood Pressure Pulse Oximetry 94 L 95 03/21/18 18:00 03/21/18 19:00 03/21/18 19:49 Temperature Pulse Rate 92 H 94 H 96 H Respiratory Rate 45 H 27 H 27 H Blood Pressure 118/56 L Pulse Oximetry 96 94 L 98 03/21/18 20:00 03/21/18 21:00 03/21/18 22:00 Temperature 98 F Pulse Rate 93 H 96 H 88 Respiratory Rate 6 L 30 H 60 H Blood Pressure Pulse Oximetry 98 95 99 03/21/18 23:00 03/22/18 00:00 03/22/18 00:51 Temperature 98.2 F Pulse Rate 87 89 85 Respiratory Rate 37 H 27 H 32 H Blood Pressure 129/60 Pulse Oximetry 96 100 78 L 03/22/18 01:00 03/22/18 02:00 03/22/18 03:00 Temperature 99 F Pulse Rate 100 H 93 H 80 Respiratory Rate 54 H 51 H 28 H Blood Pressure Pulse Oximetry 94 L 99 100 03/22/18 04:00 03/22/18 05:00 03/22/18 06:00 Temperature 98.5 F Pulse Rate 71 76 72 Respiratory Rate 27 H 27 H Blood Pressure Pulse Oximetry 98 03/22/18 06:38 03/22/18 08:00 Temperature Pulse Rate Respiratory Rate 24 Blood Pressure Pulse Oximetry 97 Intake & Output 03/21/18 03/22/18 03/22/18 18:59 06:59 18:59 Intake Total 2800 / 2800 650 / 650 Output Total 3250 / 3250 3000 / 3000 Balance -450 / -450 -2350 / -2350 Weight 77.5 kg Intake: IV 1100 / 1100 150 / 150 LR 1000 mL Inj 1,000 ML @ 200 1000 / 1000 mls/hr IV.CONT .Q5H CRISTELA Rx#: [id number] NS Inj 250 ML @ 15 mls/hr IV. 150 / 150 SIG ONCE CRISTELA Rx#:[id number] Rocephin Inj 1,000 MG In NS Inj 100 / 100 100 ML @ 200 mls/hr IV.SIG Q24H CRISTELA Rx#:[id number] Oral 900 / 900 500 / 500 Other 400 / 400 Rbc As-3 Leukoreduced Unit 400 / 400 [id number] Intake (Blood Product) Amt 400 / 400 Rbc As-3 Leukoreduced Unit 400 / 400 [id number] Output: Urine 3250 / 3250 3000 / 3000 Other: # Bowel Movements 0 Result Diagrams: 03/22/18 04:45 03/22/18 10:15 Laboratory Results: Laboratory Results - last 24 hr 03/21/18 03/21/18 03/22/18 06:35 15:30 04:45 WBC 15.7 H RBC 2.42 L Hgb 7.5 L 7.2 L Hct 21.9 L 21.0 L MCV 87.0 D MCH 29.8 MCHC 34.3 RDW 20.5 H D Plt Count 373 MPV 8.2 Prelim Diff (Auto) Slide review pending Neut % (Auto) 62.1 Lymph % (Auto) 25.9 [place] % (Auto) 9.2 H Eos % (Auto) 2.5 Baso % (Auto) 0.3 Neut # (Auto) 9.7 H Lymph # (Auto) 4.1 [place] # (Auto) 1.4 H Eos # (Auto) 0.4 Baso # (Auto) 0.1 WBC Differential Manual diff final Seg Neuts % (Manual) 69 Band Neuts % (Manual) 2 Lymphocytes % (Manual) 25 Monocytes % (Manual) 2 Eosinophils % (Manual) 2 Abs Neuts (Manual) 11.1 H Nucleated RBCs/100 WBC 3 H Differential Comment . Platelet Estimate Normal Platelet Morphology Normal Basophilic Stippling Faint H Pappenheimer Bodies Present H Sickle Cells 1+ H Target Cells 1+ H Retic Count Absolute Retic Puncture Site Patient Temperature O2 Saturation ABG pH ABG pCO2 ABG pO2 ABG HCO3 ABG O2 Content ABG Base Excess ABG Methemoglobin Abdulaziz Test Hemoglobin Carboxyhemoglobin O2 Delivery Device Inspired O2 Critical Value Sodium Potassium Chloride Carbon Dioxide Anion Gap BUN Creatinine Estimated GFR Random Glucose Calcium Total Bilirubin AST ALT Alkaline Phosphatase Lactate Dehydrogenase Total Protein Albumin Beta HCG, Qual MTS Gel Crossmatch See Detail 03/22/18 03/22/18 03/22/18 04:45 10:15 10:15 WBC RBC Hgb Hct MCV MCH MCHC RDW Plt Count MPV Prelim Diff (Auto) Neut % (Auto) Lymph % (Auto) [place] % (Auto) Eos % (Auto) Baso % (Auto) Neut # (Auto) Lymph # (Auto) [place] # (Auto) Eos # (Auto) Baso # (Auto) WBC Differential Seg Neuts % (Manual) Band Neuts % (Manual) Lymphocytes % (Manual) Monocytes % (Manual) Eosinophils % (Manual) Abs Neuts (Manual) Nucleated RBCs/100 WBC Differential Comment Platelet Estimate Platelet Morphology Basophilic Stippling Pappenheimer Bodies Sickle Cells Target Cells Retic Count 6.5 H Absolute Retic 156.4 H Puncture Site Patient Temperature O2 Saturation ABG pH ABG pCO2 ABG pO2 ABG HCO3 ABG O2 Content ABG Base Excess ABG Methemoglobin Abdulaziz Test Hemoglobin Carboxyhemoglobin O2 Delivery Device Inspired O2 Critical Value Sodium 140 Potassium 3.4 L Chloride 106 Carbon Dioxide 28.6 Anion Gap 5 BUN 5 L Creatinine 0.37 L Estimated GFR Greater than 89 Random Glucose 85 Calcium 8.2 L Total Bilirubin 1.6 H AST 17 ALT 13 Alkaline Phosphatase 55 Lactate Dehydrogenase 412 H Total Protein 6.5 D Albumin 2.8 L Beta HCG, Qual Less than 1.0 MTS Gel Crossmatch 03/22/18 10:28 WBC RBC Hgb Hct MCV MCH MCHC RDW Plt Count MPV Prelim Diff (Auto) Neut % (Auto) Lymph % (Auto) [place] % (Auto) Eos % (Auto) Baso % (Auto) Neut # (Auto) Lymph # (Auto) [place] # (Auto) Eos # (Auto) Baso # (Auto) WBC Differential Seg Neuts % (Manual) Band Neuts % (Manual) Lymphocytes % (Manual) Monocytes % (Manual) Eosinophils % (Manual) Abs Neuts (Manual) Nucleated RBCs/100 WBC Differential Comment Platelet Estimate Platelet Morphology Basophilic Stippling Pappenheimer Bodies Sickle Cells Target Cells Retic Count Absolute Retic Puncture Site Right radial Patient Temperature 98.6 O2 Saturation 90 ABG pH 7.42 ABG pCO2 40 ABG pO2 78 ABG HCO3 25 ABG O2 Content 9.6 L ABG Base Excess 1.0 ABG Methemoglobin 1.8 Abdulaziz Test Present Hemoglobin 7.5 L* Carboxyhemoglobin 4.6 H O2 Delivery Device Ra Inspired O2 21 Critical Value Yes Sodium Potassium Chloride Carbon Dioxide Anion Gap BUN Creatinine Estimated GFR Random Glucose Calcium Total Bilirubin AST ALT Alkaline Phosphatase Lactate Dehydrogenase Total Protein Albumin Beta HCG, Qual MTS Gel Crossmatch Culture Results: Microbiology 03/18/18 12:55 Aerobic Blood Culture - Preliminary Blood - Peripheral No growth in 4 days Anaerobic Blood Culture - Preliminary No growth in 4 days 03/18/18 12:40 Aerobic Blood Culture - Preliminary Blood - Peripheral No growth in 4 days Anaerobic Blood Culture - Preliminary No growth in 4 days Medications: Active Medications Generic Name Dose Route Start Last Admin Trade Name Freq PRN Reason Stop Dose Admin Acetaminophen 650 mg 03/18/18 21:58 03/19/18 08:06 Tylenol PO 650 mg Q6H PRN Administration FEVER > 100.4 Acetaminophen 650 mg 03/19/18 07:43 03/20/18 08:51 Tylenol PO 650 mg Q4H PRN Administration SEE LABEL COMMENTS Hydrocodone Bitart/Acetaminophen 1 tab 03/18/18 14:53 03/19/18 14:56 [place] 5/325 PO 1 tab Q4H PRN Administration PAIN SCALE 1 TO 5 Albuterol 1 ampul 03/19/18 08:01 03/19/18 08:35 Duoneb Neb (Prn) NEB 1 ampul Q4HR NEB PRN Administration wheezing/SOB Azithromycin 250 mg 03/19/18 12:00 03/22/18 08:57 Zithromax PO 250 mg DAILY CRISTELA Administration Diphenhydramine HCl 25 mg 03/18/18 14:47 03/19/18 11:04 Benadryl PO 25 mg Q4H PRN Administration ITCHING Docusate Sodium 100 mg 03/18/18 21:00 03/22/18 08:57 Colace PO Not Given BID CRISTELA Enoxaparin Sodium 40 mg 03/19/18 21:00 03/21/18 20:52 Lovenox Inj SQ 40 mg Q24H CRISTELA Administration Folic Acid 1 mg 03/19/18 09:00 03/22/18 08:57 Folic Acid PO 1 mg DAILY CRISTELA Administration Ceftriaxone Sodium 1,000 mg/ 100 mls @ 200 mls/hr 03/19/18 14:00 03/21/18 14: 42 Sodium Chloride IV.SIG Infused Q24H CRISTELA Infusion Lactated Ringer's 1,000 mls @ 100 mls/hr 03/18/18 21:00 03/22/18 05:00 Lr 1000 Ml Inj IV.CONT 100 mls/hr .Q10H CRISTELA Administration Hydromorphone/Sodium Chloride 6 mg in 30 mls @ 2.5 mls/hr 03/19/18 15:48 06:43 Dilaudid Roguer Inj MOHS SURGEON/GENERAL DERMATOLOGIST 2.5 mls/hr UNSCH PRN Infusion prn pain 0.5 MG/HR Lidocaine HCl 1 patch 03/21/18 14:15 03/22/18 08:57 Lidoderm 5% Patch.12 Hr T-DERMAL Not Given DAILY CRISTELA Oxycodone HCl 10 mg 03/19/18 10:00 03/22/18 09:02 Roxicodone PO 10 mg Q6H CRISTELA Administration Patch Removal 1 each 03/21/18 21:00 03/22/18 00:55 Remove Old Patch T-DERMAL 1 each HS CRISTELA Administration Sodium Chloride 2 ml 03/18/18 14:47 03/20/18 08:51 Ns Flush IV.FLUSH 2 ml PRN PRN Administration FLUSH AFTER USING IV ACCESS Sodium Chloride 2 ml 03/18/18 21:00 03/22/18 08:58 Ns Flush IV.FLUSH 2 ml BID CRISTELA Administration Objective Remarks: GENERAL: Young female lying in bed, in no acute distress. SKIN: Warm and dry. HEAD: Normocephalic. EYES: No scleral icterus. No injection or drainage. NECK: Supple, trachea midline. No JVD or lymphadenopathy. CARDIOVASCULAR: Normal rate and rhythm without murmurs. RESPIRATORY: Anterior breath sounds clear, equal bilaterally. Nonlabored at rest. GASTROINTESTINAL: Abdomen soft, non-tender, nondistended. EXTREMITIES: No cyanosis, or edema. MUSCULOSKELETAL: Adequate muscle tone. NEUROLOGICAL: No obvious focal deficit. Assessment/Plan - Plan 22-year-old female admitted with shortness of breath and sickle cell crisis 1. Sickle Cell pain crisis. Currently on Dilaudid MOHS SURGEON/GENERAL DERMATOLOGIST pump and Toradol. Monitor closely for oversedation. 2. Sickle cell anemia, hemoglobin 7.2. No transfusions warranted at this time. 3. Pain to left chest wall, pending CT chest as the patient has a history of chest syndrome. Her test was negative. ABG: PH 7.45, PCO2 40, PO2 78 , HCO3 25, hemoglobin 7.5. EKG showed normal sinus rhythm. - Attending Statement The exam, history, and the medical decision-making described in the above note were completed with the assistance of the mid-level provider. I reviewed and agree with the findings presented. I attest that I had a [id number] encounter with the patient on the same day, and personally performed and documented my assessment and findings in the medical record. Patient is complaining of severe pain all over. She is also complaining of painful lump in left breast I examined the patient in the presence of her nurse at bedside Patient has fibrocystic disease of the breast. Underlying rib is very tender to touch EKG done last night does not show any ischemic changes Patient has a history of acute chest syndrome and questionable stroke in the past when she was [facility] in [place]. I will check the ABG, test and CAT scan of the chest to evaluate for acute chest syndrome Continue MOHS SURGEON/GENERAL DERMATOLOGIST Dilaudid pump with no new changes No blood transfusion indicated Monitor daily CBC, LDH, total bilirubin, and reticulocyte count
--- NOTE | 2018-03-22 12:52 | CT ---
EXAM DATE: 03/22/2018 12:47 PM EST AGE/SEX: 22 years / Female INDICATIONS: Sickle cell crisis. Chest pain. Acute chest syndrome. CLINICAL DATA: This is the patient's initial encounter. Patient reports that signs and symptoms have been present for 1 day and indicates a pain score of 10/10. MEDICAL/SURGICAL HISTORY: Sickle Cell disease. Asthma. None. RADIATION DOSE: 8.29 CTDI (mGy) COMPARISON: No prior exams available for comparison. TECHNIQUE: Multiple contiguous axial images were obtained through the chest during bolus infusion of 50 ml Visipaque 320 (iodixanol) nonionic water-soluble contrast as a single exam dose. Images wer e obtained in suspended respiration using multiple row detector helical technique. Using automated e xposure control and adjustment of the mA and/or kV according to patient size, radiation dose was kept as low as reasonably achievable to obtain optimal diagnostic quality images. DICOM format image carlene a is available electronically for review and comparison. FINDINGS: Lungs: The lungs are symmetrically aerated. Posterior bibasilar alveolar consolidations are noted co nsistent with probable pneumonia. Clinical correlation is recommended. Minimal atelectatic changes ar e noted within the right upper lobe. No pulmonary nodule or mass is noted. Mediastinum: There is good visualization of the great vessels of the middle mediastinum. No evidenc e of mediastinal or hilar adenopathy/mass. Cardiomegaly is noted. Pleurae: Tiny bilateral pleural effusions are noted. Axillae: Unremarkable. Bony Structures: Unremarkable. Miscellaneous: The examination was extended to include the upper abdomen, and both adrenal glands ar e normal in size and configuration. [id number] is noted with its tip in the right atrium. CONCLUSION: 1. Posterior bibasilar alveolar consolidations are noted consistent with probable pneumonia. Clinica l correlation is recommended. 2. Tiny bilateral pleural effusions. 3. Cardiomegaly. 4. Minimal atelectatic changes within the right upper lobe. Electronically signed by: Alejandro Mack MD Board Certified Radiologist 03/22/2018 12:51 PM EST
--- NOTE | 2018-03-22 15:30 | ECG ---
Date Performed: 03/21/2018 Time Performed: 13:47:31 PTAGE: 22 years EKG: Sinus rhythm WITH SINUS ARRHYTHMIA Since the previous tracing, no significant change noted NORMAL ECG PREVIOUS TRACING : 03/18/2018 13.01 DOCTOR: Lilli Morales Interpretating Date/Time 03/22/2018 15:28:51
[2018-03-22] MEDS ORDERED: Potassium Chloride 25 MEQ Effervescent Tablet PO ONE (18:15)
[2018-03-22] MEDS: Enoxaparin Inj 40 MG/0.4 ML Syringe SQ SCH (21:24)
[2018-03-23] MEDS: HYDROmorphone PCA Inj 6 MG/30 ML PCA.VIAL PCA PRN ×4 (00:17→20:11)
[2018-03-23 04:46] LABS: Baso % (Auto) 0.3 % (0.0-2.0); Eos # (Auto) 0.4 th/mm3 (0.0-0.4); Hematocrit 22.3 % (35.0-46.0); Hemoglobin 7.7 gm/dL (11.6-15.3); Lymph # (Auto) 3.5 th/mm3 (1.0-4.8); Mean Corpuscular HGB Conc 34.7 % (32.0-36.0); Mean Corpuscular Hemoglobin 30.3 pg (27.0-34.0); Mean Corpuscular Volume 87.3 fL (80.0-100.0); Mean Platelet Volume 7.5 fL (7.0-11.0); Mono # (Auto) 1.3 th/mm3 (0.0-0.9); Mono % (Auto) 8.9 % (0.0-8.0); Neut # (Auto) 9.2 th/mm3 (1.8-7.7); Neut % (Auto) 63.8 % (16.0-70.0); Platelet Count 420 th/mm3 (150-450); Red Blood Count 2.55 mil/mm3 (4.00-5.30); Red Cell Distribution Width 20.4 % (11.6-17.2); White Blood Count 14.5 th/mm3 (4.0-11.0)
[2018-03-23 05:08] LABS: Albumin 2.9 g/dL (3.4-5.0); Anion Gap 6 meq/L (5-15); Aspartate Aminotransferase 17 U/L (16-38); Blood Urea Nitrogen 4 mg/dL (7-18); Calcium 8.1 mg/dL (8.5-10.1); Carbon Dioxide 26.8 meq/L (21.0-32.0); Chloride 106 meq/L (98-107); Glomerular Filtration Rate Greater Than 89 mL/min (>89); Glucose,Random 91 mg/dL (74-106); Lactate Dehydrogenase 398 U/L (84-246); Potassium 3.6 meq/L (3.5-5.1); Sodium 139 meq/L (136-145)
[2018-03-23 05:11] LABS: Alanine Aminotransferase 13 U/L (9-42); Alkaline Phosphatase 59 U/L (45-117); Total Protein 6.8 g/dL (6.4-8.2)
--- NOTE | 2018-03-23 07:44 | P.PNIM ---
Subjective Interval history: f/u; sickle cell painful crisis in no acute distress. but still on CONTRACT PROCESSOR pump and complaining of generalized bodyache although she says that the pain in the chest has almost resolved. no fever. d/w the RN and no acute issues over night. Physical Exam Vital signs: Last Vital Signs Temp 98.6 F 03/23/18 04:00 Pulse 80 03/23/18 06:00 Resp 31 H 03/23/18 05:00 BP 118/55 L 03/23/18 04:28 Pulse Ox 95 03/23/18 05:00 Intake & Output 03/21/18 03/22/18 03/23/18 03/24/18 06:59 06:59 06:59 06:59 Intake Total 6600 / 6600 3450 / 3450 2580 / 2580 Output Total 3100 / 3100 6250 / 6250 3900 / 3900 Balance 3500 / 3500 -2800 / -2800 -1320 / -1320 Weight 79.5 kg 77.5 kg 78.3 kg Constitutional no acute distress Comments: but uncomfortable with the pain. Routine Respiratory Exam Present CTA bilaterally Routine Cardiovascular Exam Present RRR Routine Abdominal Exam Present soft Routine Extremities Exam Comments: no pedal edema. Routine Neurological Exam Present alert and oriented X3 Urinary Catheter Management Female External: Cath placed during this visit: no Results Labs CBC & Chem 7: 03/23/18 04:30 03/23/18 04:30 Labs: Microbiology 03/18/18 12:55 Blood - Peripheral Aerobic Blood Culture - Preliminary No growth in 4 days 03/18/18 12:55 Blood - Peripheral Anaerobic Blood Culture - Preliminary No growth in 4 days 03/18/18 12:40 Blood - Peripheral Aerobic Blood Culture - Preliminary No growth in 4 days 03/18/18 12:40 Blood - Peripheral Anaerobic Blood Culture - Preliminary No growth in 4 days Imaging Imaging: Impressions Chest CT 03/22/18 00:00 CONCLUSION: 1. Posterior bibasilar alveolar consolidations are noted consistent with probable pneumonia. Clinical correlation is recommended. 2. Tiny bilateral pleural effusions. 3. Cardiomegaly. 4. Minimal atelectatic changes within the right upper lobe. Assessment and Plan Plan Acute sickle cell pain crisis- - IV fluids, continue home medication Pain control with Dilaudid CONTRACT PROCESSOR per hematology -Urine drug screen positive for cannabinoids and patient admitted to using marijuana. -pneumonia continue with IV antibiotics- blood cultures negative so far. Sickle cell anemiamonitor hemoglobin after transfusion. Chest wall painreproducible likely due to musculoskeletal, no changes in EKG and cardiac monitoring in the ICU. Will try Lidoderm patch. Oxygen saturation 99 200% room air. DVT prophylaxis Lovenox Progress Note: Quality VTE Deep Vein Thrombosis/Pulmonary Embolism Present on Admission: No
[2018-03-23 08:17] LABS: Basophilic Stippling Moderate; Eosinophils 2 % (0-4); Lymphocytes 33 % (9-44); Monocytes 5 % (0-8); Platelet Morphology Normal (Normal); Sickle Cells 1+; Tallied Nucleated RBC 7 (0-0); Target Cells 1+
[2018-03-23 08:18] LABS: Ovalocytes 1+
[2018-03-23 08:32] LABS: Reticulocyte Percent 5.3 % (0.4-3.0)
[2018-03-23] MEDS: Docusate Sodium 100 MG Capsule PO SCH ×2 (09:00→22:20)
[2018-03-23] MEDS: Lidocaine 5% Patch T-DERMAL SCH (09:00)
[2018-03-23] MEDS: Folic Acid 1 MG Tablet PO SCH (09:00)
[2018-03-23] MEDS: Azithromycin 250 MG Tablet PO SCH (09:00)
--- NOTE | 2018-03-23 14:51 | P.PNONC ---
Subjective Interval history: Patient reports feeling better today. She states her pain is improved. She thinks she is ready to decrease her CLAIMS ASSISTANT pump. Denies any shortness of breath. She is eating. Objective Vital Signs/Intake & Output: Vital Signs 03/22/18 15:00 03/22/18 16:00 03/22/18 17:00 Temperature 98.0 F Pulse Rate 84 84 94 H Respiratory Rate 22 29 H 18 Blood Pressure 125/58 L Pulse Oximetry 94 L 93 L 89 L 03/22/18 17:06 03/22/18 18:00 03/22/18 19:00 Temperature Pulse Rate 94 H 90 98 H Respiratory Rate 24 25 H 50 H Blood Pressure 125/58 L Pulse Oximetry 92 L 95 96 03/22/18 20:00 03/22/18 20:32 03/22/18 21:00 Temperature 98.6 F Pulse Rate 80 79 Respiratory Rate 31 H 31 H Blood Pressure Pulse Oximetry 96 96 95 03/22/18 21:28 03/22/18 22:00 03/22/18 23:00 Temperature Pulse Rate 82 80 91 H Respiratory Rate 31 H 29 H 37 H Blood Pressure 110/55 L Pulse Oximetry 94 L 94 L 96 03/23/18 00:00 03/23/18 01:00 03/23/18 02:00 Temperature 98.7 F Pulse Rate 90 78 82 Respiratory Rate 40 H 29 H 30 H Blood Pressure Pulse Oximetry 100 100 98 03/23/18 03:00 03/23/18 04:00 03/23/18 04:17 Temperature 98.6 F Pulse Rate 82 90 90 Respiratory Rate 31 H 43 H 28 H Blood Pressure 84/50 L Pulse Oximetry 99 96 98 03/23/18 04:28 03/23/18 05:00 03/23/18 06:00 Temperature Pulse Rate 76 78 80 Respiratory Rate 27 H 31 H Blood Pressure 118/55 L Pulse Oximetry 96 95 03/23/18 08:00 03/23/18 10:00 03/23/18 12:00 Temperature 98.0 F 98.2 F Pulse Rate 74 74 66 Respiratory Rate 25 H 20 Blood Pressure 108/52 L 124/58 L Pulse Oximetry 99 97 03/23/18 14:00 Temperature Pulse Rate 70 Respiratory Rate Blood Pressure Pulse Oximetry Intake & Output 03/22/18 03/23/18 03/23/18 18:59 06:59 18:59 Intake Total 1280 / 1280 1300 / 1300 1100 / 1100 Output Total 1500 / 1500 2400 / 2400 Balance -220 / -220 -1100 / -1100 1100 / 1100 Weight 78.3 kg Intake: IV 1100 / 1100 1000 / 1000 1100 / 1100 LR 1000 mL Inj 1,000 ML @ 100 1000 / 1000 1000 / 1000 1000 / 1000 mls/hr IV.CONT .Q10H CRISTELA Rx#: [id number] Rocephin Inj 1,000 MG In NS Inj 100 / 100 100 / 100 100 ML @ 200 mls/hr IV.SIG Q24H CRISTELA Rx#:[id number] Oral 180 / 180 300 / 300 Output: Urine 1500 / 1500 Urine Amount (Catheter) 2400 / 2400 Female External 2400 / 2400 Result Diagrams: 03/23/18 04:30 03/23/18 04:30 Laboratory Results: Laboratory Results - last 24 hr 03/23/18 03/23/18 03/23/18 04:30 04:30 04:30 WBC 14.5 H RBC 2.55 L Hgb 7.7 L Hct 22.3 L MCV 87.3 MCH 30.3 MCHC 34.7 RDW 20.4 H Plt Count 420 MPV 7.5 Prelim Diff (Auto) Slide review pending Neut % (Auto) 63.8 Lymph % (Auto) 24.0 [place] % (Auto) 8.9 H Eos % (Auto) 3.0 Baso % (Auto) 0.3 Neut # (Auto) 9.2 H Lymph # (Auto) 3.5 [place] # (Auto) 1.3 H Eos # (Auto) 0.4 Baso # (Auto) 0.0 WBC Differential Manual diff final Seg Neuts % (Manual) 58 Band Neuts % (Manual) 2 Lymphocytes % (Manual) 33 Monocytes % (Manual) 5 Eosinophils % (Manual) 2 Abs Neuts (Manual) 8.7 H Nucleated RBCs/100 WBC 7 H Differential Comment . Platelet Estimate High H Platelet Morphology Normal Basophilic Stippling Moderate H Sickle Cells 1+ H Target Cells 1+ H Ovalocytes 1+ H Retic Count 5.3 H Absolute Retic 134.7 Sodium 139 Potassium 3.6 Chloride 106 Carbon Dioxide 26.8 Anion Gap 6 BUN 4 L Creatinine 0.39 L Estimated GFR Greater than 89 Random Glucose 91 Calcium 8.1 L Total Bilirubin 1.0 AST 17 ALT 13 Alkaline Phosphatase 59 Lactate Dehydrogenase 398 H Total Protein 6.8 Albumin 2.9 L Culture Results: Microbiology 03/18/18 12:55 Aerobic Blood Culture - Final Blood - Peripheral No growth in 5 days Anaerobic Blood Culture - Final No growth in 5 days 03/18/18 12:40 Aerobic Blood Culture - Final Blood - Peripheral No growth in 5 days Anaerobic Blood Culture - Final No growth in 5 days Medications: Active Medications Generic Name Dose Route Start Last Admin Trade Name Freq PRN Reason Stop Dose Admin Acetaminophen 650 mg 03/18/18 21:58 03/19/18 08:06 Tylenol PO 650 mg Q6H PRN Administration FEVER > 100.4 Acetaminophen 650 mg 03/19/18 07:43 03/20/18 08:51 Tylenol PO 650 mg Q4H PRN Administration SEE LABEL COMMENTS Hydrocodone Bitart/Acetaminophen 1 tab 03/18/18 14:53 03/19/18 14:56 [place] 5/325 PO 1 tab Q4H PRN Administration PAIN SCALE 1 TO 5 Albuterol 1 ampul 03/19/18 08:01 03/19/18 08:35 Duoneb Neb (Prn) NEB 1 ampul Q4HR NEB PRN Administration wheezing/SOB Azithromycin 250 mg 03/19/18 12:00 03/23/18 09:00 Zithromax PO 250 mg DAILY CRISTELA Administration Diphenhydramine HCl 25 mg 03/18/18 14:47 03/19/18 11:04 Benadryl PO 25 mg Q4H PRN Administration ITCHING Docusate Sodium 100 mg 03/18/18 21:00 03/23/18 09:00 Colace PO Not Given BID CRISTELA Enoxaparin Sodium 40 mg 03/19/18 21:00 03/22/18 21:24 Lovenox Inj SQ 40 mg Q24H CRISTELA Administration Folic Acid 1 mg 03/19/18 09:00 03/23/18 09:00 Folic Acid PO 1 mg DAILY CRISTELA Administration Ceftriaxone Sodium 1,000 mg/ 100 mls @ 200 mls/hr 03/19/18 14:00 03/23/18 14: 34 Sodium Chloride IV.SIG Infused Q24H CRISTELA Infusion Lactated Ringer's 1,000 mls @ 100 mls/hr 03/18/18 21:00 03/23/18 10:27 Lr 1000 Ml Inj IV.CONT 100 mls/hr .Q10H CRISTELA Administration Hydromorphone/Sodium Chloride 6 mg in 30 mls @ 2.5 mls/hr 03/19/18 15:48 13:21 Dilaudid Sales Strategy Manager Inj CLAIMS ASSISTANT 2.5 mls/hr UNSCH PRN Administration prn pain 0.5 MG/HR Lidocaine HCl 1 patch 03/21/18 14:15 03/23/18 09:00 Lidoderm 5% Patch.12 Hr T-DERMAL 1 patch DAILY CRISTELA Administration Oxycodone HCl 10 mg 03/19/18 10:00 03/23/18 10:27 Roxicodone PO 10 mg Q6H CRISTELA Administration Patch Removal 1 each 03/21/18 21:00 03/23/18 06:43 Remove Old Patch T-DERMAL 1 each HS CRISTELA Administration Sodium Chloride 2 ml 03/18/18 14:47 03/20/18 08:51 Ns Flush IV.FLUSH 2 ml PRN PRN Administration FLUSH AFTER USING IV ACCESS Sodium Chloride 2 ml 03/18/18 21:00 03/23/18 09:00 Ns Flush IV.FLUSH 2 ml BID CRISTELA Administration Objective Remarks: GENERAL: Young female lying in bed, in no acute distress. SKIN: Warm and dry. HEAD: Normocephalic. EYES: No scleral icterus. No injection or drainage. NECK: Supple, trachea midline. No JVD or lymphadenopathy. CARDIOVASCULAR: Normal rate and rhythm without murmurs. RESPIRATORY: Anterior breath sounds clear, equal bilaterally. Nonlabored at rest. GASTROINTESTINAL: Abdomen soft, non-tender, nondistended. EXTREMITIES: No cyanosis, or edema. MUSCULOSKELETAL: Adequate muscle tone. NEUROLOGICAL: No obvious focal deficit. Assessment/Plan - Plan 22-year-old female admitted with shortness of breath and sickle cell crisis 1. Sickle Cell pain crisis. Currently on Dilaudid CLAIMS ASSISTANT pump and Toradol. Monitor closely for oversedation. Recommend decreasing Dilaudid CLAIMS ASSISTANT, subjectively feel she could tolerate less medication. 2. Sickle cell anemia, hemoglobin 7.7. No transfusions warranted at this time. 3. CBC, LDH, total bilirubin and reticulocyte count have all improved. We will continue to monitor. - Attending Statement The exam, history, and the medical decision-making described in the above note were completed with the assistance of the mid-level provider. I reviewed and agree with the findings presented. I attest that I had a [id number] encounter with the patient on the same day, and personally performed and documented my assessment and findings in the medical record. Patient feels better, pain is improving Wean off Dilaudid CLAIMS ASSISTANT No blood transfusion Continue to monitor CBC We will follow
[2018-03-23] MEDS: Enoxaparin Inj 40 MG/0.4 ML Syringe SQ SCH (20:15)
[2018-03-24] MEDS: HYDROmorphone PCA Inj 6 MG/30 ML PCA.VIAL PCA PRN (03:36)
[2018-03-24 04:16] LABS: Reticulocyte Percent 5.2 % (0.4-3.0)
[2018-03-24 04:40] LABS: Alanine Aminotransferase 14 U/L (9-42); Albumin 2.9 g/dL (3.4-5.0); Anion Gap 7 meq/L (5-15); Aspartate Aminotransferase 16 U/L (16-38); Blood Urea Nitrogen 4 mg/dL (7-18); Calcium 8.4 mg/dL (8.5-10.1); Carbon Dioxide 26.6 meq/L (21.0-32.0); Chloride 106 meq/L (98-107); Glomerular Filtration Rate Greater Than 89 mL/min (>89); Glucose,Random 109 mg/dL (74-106); Lactate Dehydrogenase 357 U/L (84-246); Potassium 3.6 meq/L (3.5-5.1); Sodium 140 meq/L (136-145)
[2018-03-24 04:42] LABS: Alkaline Phosphatase 58 U/L (45-117); Total Protein 6.8 g/dL (6.4-8.2)
--- NOTE | 2018-03-24 08:04 | P.PNIM ---
Subjective Interval history: f/u; sickle cell painful crisis pain seems to be improving. no fever. no new complaints. Physical Exam Vital signs: Last Vital Signs Temp 98.6 F 03/24/18 00:00 Pulse 71 03/24/18 06:00 Resp 27 H 03/24/18 04:00 BP 110/56 L 03/24/18 02:30 Pulse Ox 96 03/24/18 04:00 Intake & Output 03/22/18 03/23/18 03/24/18 03/25/18 06:59 06:59 06:59 06:59 Intake Total 3450 / 3450 2580 / 2580 3360 / 3360 Output Total 6250 / 6250 3900 / 3900 2700 / 2700 Balance -2800 / -2800 -1320 / -1320 660 / 660 Weight 77.5 kg 78.3 kg 76.5 kg Constitutional no acute distress Routine Respiratory Exam Present CTA bilaterally Routine Cardiovascular Exam Present RRR Routine Abdominal Exam Present soft Routine Extremities Exam Comments: no pedal edema. Routine Neurological Exam Present alert Urinary Catheter Management Female External: Cath placed during this visit: no Results Labs CBC & Chem 7: 03/23/18 04:30 03/24/18 03:55 Labs: Microbiology 03/18/18 12:55 Blood - Peripheral Aerobic Blood Culture - Final No growth in 5 days 03/18/18 12:55 Blood - Peripheral Anaerobic Blood Culture - Final No growth in 5 days 03/18/18 12:40 Blood - Peripheral Aerobic Blood Culture - Final No growth in 5 days 03/18/18 12:40 Blood - Peripheral Anaerobic Blood Culture - Final No growth in 5 days Assessment and Plan Plan Acute sickle cell pain crisis-; pain seems to be improving. - IV fluids, continue home medication Pain control with Dilaudid TUFTING MACHINE OPERATOR SINGLE NEEDLE per hematology; is being weaned off. -Urine drug screen positive for cannabinoids and patient admitted to using marijuana. -pneumonia continue with IV antibiotics- blood cultures negative so far. Sickle cell anemiamonitor hemoglobin after transfusion. Chest wall painreproducible likely due to musculoskeletal, no changes in EKG and cardiac monitoring in the ICU. Will try Lidoderm patch. DVT prophylaxis Lovenox Progress Note: Quality VTE Deep Vein Thrombosis/Pulmonary Embolism Present on Admission: No
[2018-03-24] MEDS: Folic Acid 1 MG Tablet PO SCH (09:21)
[2018-03-24] MEDS: Lidocaine 5% Patch T-DERMAL SCH (09:21)
[2018-03-24] MEDS: Docusate Sodium 100 MG Capsule PO SCH ×2 (09:21→20:06)
[2018-03-24] MEDS: Azithromycin 250 MG Tablet PO SCH (09:21)
--- NOTE | 2018-03-24 11:10 | P.PNONC ---
Subjective Interval history: Patient states that she is feeling better. Her pain has much improved She agreed to start the DRAWING KILN SUPERVISOR pump Objective Vital Signs/Intake & Output: Vital Signs 03/23/18 11:54 03/23/18 12:00 03/23/18 13:00 Temperature 98.2 F Pulse Rate 71 62 63 Respiratory Rate 30 H 24 18 Blood Pressure 124/58 L 124/58 L Pulse Oximetry 100 100 100 03/23/18 14:00 03/23/18 15:00 03/23/18 15:41 Temperature Pulse Rate 71 75 72 Respiratory Rate 31 H 23 23 Blood Pressure 118/56 L Pulse Oximetry 98 100 99 03/23/18 16:00 03/23/18 17:00 03/23/18 18:00 Temperature 98.8 F Pulse Rate 78 89 75 Respiratory Rate 16 28 H 17 Blood Pressure 118/56 L Pulse Oximetry 99 93 L 96 03/23/18 19:00 03/23/18 20:00 03/23/18 20:45 Temperature 98.5 F Pulse Rate 76 77 Respiratory Rate 24 24 Blood Pressure Pulse Oximetry 98 100 100 03/23/18 21:00 03/23/18 21:40 03/23/18 22:00 Temperature Pulse Rate 76 76 75 Respiratory Rate 18 56 H 8 L Blood Pressure 120/56 L Pulse Oximetry 100 99 96 03/23/18 23:00 03/24/18 00:00 03/24/18 01:00 Temperature 98.6 F Pulse Rate 78 78 74 Respiratory Rate 26 H 0 L 23 Blood Pressure Pulse Oximetry 100 95 97 03/24/18 02:00 03/24/18 02:30 03/24/18 04:00 Temperature Pulse Rate 67 78 76 Respiratory Rate 23 41 H 27 H Blood Pressure 110/56 L Pulse Oximetry 94 L 97 96 03/24/18 06:00 03/24/18 08:14 Temperature Pulse Rate 71 Respiratory Rate Blood Pressure Pulse Oximetry 94 L Intake & Output 03/23/18 03/24/18 03/24/18 18:59 06:59 18:59 Intake Total 2060 / 2060 1300 / 1300 1000 / 1000 Output Total 1000 / 1000 1700 / 1700 Balance 1060 / 1060 -400 / -400 1000 / 1000 Weight 76.5 kg Intake: IV 1100 / 1100 1000 / 1000 1000 / 1000 LR 1000 mL Inj 1,000 ML @ 100 1000 / 1000 1000 / 1000 1000 / 1000 mls/hr IV.CONT .Q10H [facility] Rx#: [id number] Rocephin Inj 1,000 MG In NS Inj 100 / 100 100 ML @ 200 mls/hr IV.SIG Q24H [facility] Rx#:[id number] Oral 960 / 960 300 / 300 Output: Urine 1000 / 1000 Urine Amount (Catheter) 1700 / 1700 Female External 1700 / 1700 Result Diagrams: 03/23/18 04:30 03/24/18 03:55 Laboratory Results: Laboratory Results - last 24 hr 03/24/18 03/24/18 03:55 03:55 Retic Count 5.2 H Absolute Retic 138.4 Sodium 140 Potassium 3.6 Chloride 106 Carbon Dioxide 26.6 Anion Gap 7 BUN 4 L Creatinine 0.38 L Estimated GFR Greater than 89 Random Glucose 109 H Calcium 8.4 L Total Bilirubin 0.8 AST 16 ALT 14 Alkaline Phosphatase 58 Lactate Dehydrogenase 357 H Total Protein 6.8 Albumin 2.9 L Culture Results: Microbiology 03/18/18 12:55 Aerobic Blood Culture - Final Blood - Peripheral No growth in 5 days Anaerobic Blood Culture - Final No growth in 5 days 03/18/18 12:40 Aerobic Blood Culture - Final Blood - Peripheral No growth in 5 days Anaerobic Blood Culture - Final No growth in 5 days Medications: Active Medications Generic Name Dose Route Start Last Admin Trade Name Freq PRN Reason Stop Dose Admin Acetaminophen 650 mg 03/18/18 21:58 03/19/18 08:06 Tylenol PO 650 mg Q6H PRN Administration FEVER > 100.4 Acetaminophen 650 mg 03/19/18 07:43 03/20/18 08:51 Tylenol PO 650 mg Q4H PRN Administration SEE LABEL COMMENTS Albuterol 1 ampul 03/19/18 08:01 03/19/18 08:35 Duoneb Neb (Prn) NEB 1 ampul Q4HR NEB PRN Administration wheezing/SOB Azithromycin 250 mg 03/19/18 12:00 03/24/18 09:21 Zithromax PO 250 mg DAILY [facility] Administration Diphenhydramine HCl 25 mg 03/18/18 14:47 03/19/18 11:04 Benadryl PO 25 mg Q4H PRN Administration ITCHING Docusate Sodium 100 mg 03/18/18 21:00 03/24/18 09:21 Colace PO Not Given BID [facility] Enoxaparin Sodium 40 mg 03/19/18 21:00 03/23/18 20:15 Lovenox Inj SQ 40 mg Q24H [facility] Administration Folic Acid 1 mg 03/19/18 09:00 03/24/18 09:21 Folic Acid PO 1 mg DAILY [facility] Administration Ceftriaxone Sodium 1,000 mg/ 100 mls @ 200 mls/hr 03/19/18 14:00 03/23/18 14: 34 Sodium Chloride IV.SIG Infused Q24H [facility] Infusion Lactated Ringer's 1,000 mls @ 100 mls/hr 03/18/18 21:00 03/24/18 09:19 Lr 1000 Ml Inj IV.CONT 100 mls/hr .Q10H [facility] Administration Lidocaine HCl 1 patch 03/21/18 14:15 03/24/18 09:21 Lidoderm 5% Patch.12 Hr T-DERMAL 1 patch DAILY [facility] Administration Patch Removal 1 each 03/21/18 21:00 03/23/18 22:22 Remove Old Patch T-DERMAL 1 each HS [facility] Administration Sodium Chloride 2 ml 03/18/18 14:47 03/20/18 08:51 Ns Flush IV.FLUSH 2 ml PRN PRN Administration FLUSH AFTER USING IV ACCESS Sodium Chloride 2 ml 03/18/18 21:00 03/24/18 09:21 Ns Flush IV.FLUSH 2 ml BID [facility] Administration Objective Remarks: GENERAL: Well-nourished, well-developed patient. SKIN: Warm and dry. HEAD: Normocephalic. EYES: No scleral icterus. No injection or drainage. NECK: Supple, trachea midline. No JVD or lymphadenopathy. LYMPHATIC: No adenopathy. CARDIOVASCULAR: Regular rate and rhythm without murmurs. RESPIRATORY: Breath sounds equal bilaterally. No accessory muscle use. GASTROINTESTINAL: Abdomen soft, non-tender, nondistended. EXTREMITIES: No cyanosis, or edema. MUSCULOSKELETAL: Adequate muscle tone. NEUROLOGICAL: No obvious focal deficit. Awake, alert, and oriented x3. PSYCHIATRIC: Appropriate mood and affect; insight and judgment normal. Assessment/Plan - Plan 22-year-old female admitted with shortness of breath and sickle cell crisis 1. Sickle Cell pain crisis. Currently on Dilaudid DRAWING KILN SUPERVISOR pump and Toradol. Monitor closely for oversedation. Recommend decreasing Dilaudid DRAWING KILN SUPERVISOR, subjectively feel she could tolerate less medication. 2. Sickle cell anemia, hemoglobin 7.7. No transfusions warranted at this time. 3. CBC, LDH, total bilirubin and reticulocyte count have all improved. We will continue to monitor. 03/24/2018 Seems like pain crisis has resolved or almost resolve I discussed with her to stop the DRAWING KILN SUPERVISOR Dilaudid pump. She agreed with that. She states that at home she takes Dilaudid 4 mg p.o. every 4 hours which is prescribed by her demonstrator sales at [facility]. I have placed an order for Dilaudid 4 mg p.o. every 6 as scheduled and Dilaudid IV 2 mg every 4 hours as needed for breakthrough pain. I have discontinue the order for Lortab and oxycodone. Patient can be transferred to regular floor from ICU Case discussed with patient's RN who will notify admitting Dr. for transfer orders Patient wants to go home before [place] If over the weekend she remained stable then she can be discharged. Antibiotics needs to be reevaluated by admitting physician who have ordered that.
[2018-03-24] MEDS: HYDROmorphone PF Inj 2 MG/ML Vial IV.PUSH PRN ×2 (15:35→20:05)
[2018-03-24] MEDS: Enoxaparin Inj 40 MG/0.4 ML Syringe SQ SCH (20:05)
[2018-03-25] MEDS: HYDROmorphone PF Inj 2 MG/ML Vial IV.PUSH PRN ×6 (01:30→22:19)
[2018-03-25 08:28] LABS: Baso # (Auto) 0.1 th/mm3 (0.0-0.2); Baso % (Auto) 0.6 % (0.0-2.0); Eos # (Auto) 0.5 th/mm3 (0.0-0.4); Eos % (Auto) 4.1 % (0.0-4.0); Hematocrit 21.5 % (35.0-46.0); Hemoglobin 7.3 gm/dL (11.6-15.3); Lymph % (Auto) 25.9 % (9.0-44.0); Mean Corpuscular HGB Conc 34.1 % (32.0-36.0); Mean Corpuscular Hemoglobin 29.8 pg (27.0-34.0); Mean Corpuscular Volume 87.4 fL (80.0-100.0); Mean Platelet Volume 7.9 fL (7.0-11.0); Mono # (Auto) 0.8 th/mm3 (0.0-0.9); Neut # (Auto) 7.2 th/mm3 (1.8-7.7); Neut % (Auto) 62.4 % (16.0-70.0); Platelet Count 437 th/mm3 (150-450); Red Blood Count 2.46 mil/mm3 (4.00-5.30); White Blood Count 11.6 th/mm3 (4.0-11.0)
[2018-03-25] MEDS: Docusate Sodium 100 MG Capsule PO SCH ×2 (09:38→22:21)
[2018-03-25] MEDS: Azithromycin 250 MG Tablet PO SCH (09:38)
[2018-03-25] MEDS: Lidocaine 5% Patch T-DERMAL SCH (09:38)
[2018-03-25] MEDS: Folic Acid 1 MG Tablet PO SCH (09:38)
--- NOTE | 2018-03-25 10:13 | P.PNIM ---
Subjective Interval history: Follow-up visit sickle cell painful crisis, pneumonia. Patient seen and examined today. Reports constipation. States she takes a bottle to drink with her Gatorade to relieve constipation at home. Reports coughing, with expectoration. Denies increasing shortness of breath or dyspnea. Denies fevers , chills, nausea, vomiting, diarrhea. States that the pain has been improving compared to previous days. Patient states she is always cold. Physical Exam Vital signs: Vital Signs 03/24/18 11:55 03/24/18 11:56 03/24/18 14:00 Temperature 98.6 F Pulse Rate 70 72 63 Respiratory Rate 24 Blood Pressure 133/62 Pulse Oximetry 100 03/24/18 16:00 03/24/18 20:00 03/25/18 00:35 Temperature 98.2 F 98.1 F 98 F Pulse Rate 84 77 70 Respiratory Rate 20 18 18 Blood Pressure 119/58 L 125/60 126/58 L Pulse Oximetry 100 97 100 03/25/18 04:30 03/25/18 08:34 03/25/18 09:19 Temperature 98.1 F 97.7 F Pulse Rate 75 77 Respiratory Rate 18 16 Blood Pressure 105/66 127/57 L Pulse Oximetry 99 97 97 Intake & Output 03/24/18 03/25/18 03/25/18 18:59 06:59 18:59 Intake Total 1580 / 1580 2000 / 2000 Output Total 1300 / 1300 900 / 900 Balance 280 / 280 1100 / 1100 Weight 76.5 kg Intake: IV 1100 / 1100 2000 / 2000 LR 1000 mL Inj 1,000 ML @ 100 1000 / 1000 2000 / 2000 mls/hr IV.CONT .Q10H [facility] Rx#: [id number] Rocephin Inj 1,000 MG In NS Inj 100 / 100 100 ML @ 200 mls/hr IV.SIG Q24H [facility] Rx#:[id number] Oral 480 / 480 Output: Urine 900 / 900 Urine Amount (Catheter) 1300 / 1300 Female External 1300 / 1300 Other: # Bowel Movements 0 Narrative: GENERAL: This is a well-developed AA female patient, in no apparent distress. SKIN: Warm and dry. HEENT: Normocephalic. Pupils equal round and reactive. Nose without bleeding. Airway patent. NECK: Trachea midline. CARDIOVASCULAR: Regular rate and rhythm without murmurs, gallops, or rubs. RESPIRATORY: Clear to auscultation. Breath sounds equal bilaterally. No wheezes , rales, or rhonchi. GASTROINTESTINAL: Abdomen soft, non-tender, nondistended. Bowel Sounds hypoactive. MUSCULOSKELETAL: Extremities without clubbing, cyanosis, or edema. NEUROLOGICAL: Awake and alert. Oriented to time, place, person. No focal neuro deficit. Moves all extremities. Normal speech. - Urinary Catheter Management Female External Cath placed during this visit: no Results - Labs CBC & Chem 7: 03/25/18 06:00 03/24/18 03:55 Laboratory Results - last 24 hr 03/25/18 06:00 WBC 11.6 H RBC 2.46 L Hgb 7.3 L Hct 21.5 L MCV 87.4 MCH 29.8 MCHC 34.1 RDW 20.0 H Plt Count 437 MPV 7.9 Neut % (Auto) 62.4 Lymph % (Auto) 25.9 [place] % (Auto) 7.0 Eos % (Auto) 4.1 H Baso % (Auto) 0.6 Neut # (Auto) 7.2 Lymph # (Auto) 3.0 [place]k # (Auto) 0.8 Eos # (Auto) 0.5 H Baso # (Auto) 0.1 WBC Differential . Differential Comment Auto diff final Assessment and Plan - Assessment (1) Acute sickle cell crisis Code(s): D57.00 - Hb-SS disease with crisis, unspecified Status: Acute - Plan 22 y/o female with a dx of Sickle cell anemia came in to the hospital for continued to have pain all over her joints. Acute sickle cell pain crisis -IV fluids, continue home medication -Pain control with p.o. Dilaudid, Dilaudid IV for breakthrough pain, hematology following, patient being weaned off. -Urine drug screen positive for cannabinoids and patient admitted to using marijuana. -Improving pain. Pneumonia -IV antibiotics azithromycin, ceftriaxone. Will DC azithromycin today, stop date for ceftriaxone times 7 days -Blood cultures negative to date, final -Occ cough otherwise no shortness of breath or dyspnea -O2 nasal cannula as needed, keep O2 sat greater than 90% Sickle cell anemia -monitor hemoglobin after transfusion. -H&H currently 7.3/21.5 appears to be stable since 03/21 Chest wall pain -reproducible likely due to musculoskeletal, no changes in EKG and cardiac monitoring in the ICU. -Lidoderm patch. DVT prophylaxis Lovenox Full code. Discussed Condition With: Patient, nursing, Dr. Vega Discharge Planning: Plan to DC home when clinically improved especially with pain. Last dose of antibiotic tomorrow. Possible discharge tomorrow or Tuesday.
--- NOTE | 2018-03-25 10:47 | P.PNONC ---
Subjective Interval history: Patient lying in bed, no acute distress. Eyes closed on approach opens to voice. Currently off the Dilaudid HIGHWAY ENGINEER pump. She reports she had a bad night and did not get much sleep. She describes her pain as "okay". Still remains under her left breast in the rib cage area and some in her legs. Her goal is to be home by [place] and she asked when she may be discharged. I have explained to her that we are managing her symptoms at this time, her lab work that showed improvement. Objective Vital Signs/Intake & Output: Vital Signs 03/24/18 11:55 03/24/18 11:56 03/24/18 14:00 Temperature 98.6 F Pulse Rate 70 72 63 Respiratory Rate 24 Blood Pressure 133/62 Pulse Oximetry 100 03/24/18 16:00 03/24/18 20:00 03/25/18 00:35 Temperature 98.2 F 98.1 F 98 F Pulse Rate 84 77 70 Respiratory Rate 20 18 18 Blood Pressure 119/58 L 125/60 126/58 L Pulse Oximetry 100 97 100 03/25/18 04:30 03/25/18 08:34 03/25/18 09:19 Temperature 98.1 F 97.7 F Pulse Rate 75 77 Respiratory Rate 18 16 Blood Pressure 105/66 127/57 L Pulse Oximetry 99 97 97 Intake & Output 03/24/18 03/25/18 03/25/18 18:59 06:59 18:59 Intake Total 1580 / 1580 2000 / 2000 Output Total 1300 / 1300 900 / 900 Balance 280 / 280 1100 / 1100 Weight 76.5 kg Intake: IV 1100 / 1100 2000 / 2000 LR 1000 mL Inj 1,000 ML @ 100 1000 / 1000 2000 / 2000 mls/hr IV.CONT .Q10H [facility] Rx#: [id number] Rocephin Inj 1,000 MG In NS Inj 100 / 100 100 ML @ 200 mls/hr IV.SIG Q24H [facility] Rx#:[id number] Oral 480 / 480 Output: Urine 900 / 900 Urine Amount (Catheter) 1300 / 1300 Female External 1300 / 1300 Other: # Bowel Movements 0 Result Diagrams: 03/25/18 06:00 03/24/18 03:55 Laboratory Results: Laboratory Results - last 24 hr 03/25/18 06:00 WBC 11.6 H RBC 2.46 L Hgb 7.3 L Hct 21.5 L MCV 87.4 MCH 29.8 MCHC 34.1 RDW 20.0 H Plt Count 437 MPV 7.9 Neut % (Auto) 62.4 Lymph % (Auto) 25.9 [place]ulloch % (Auto) 7.0 Eos % (Auto) 4.1 H Baso % (Auto) 0.6 Neut # (Auto) 7.2 Lymph # (Auto) 3.0 [place] # (Auto) 0.8 Eos # (Auto) 0.5 H Baso # (Auto) 0.1 WBC Differential . Differential Comment Auto diff final Culture Results: Microbiology 03/18/18 12:55 Aerobic Blood Culture - Final Blood - Peripheral No growth in 5 days Anaerobic Blood Culture - Final No growth in 5 days 03/18/18 12:40 Aerobic Blood Culture - Final Blood - Peripheral No growth in 5 days Anaerobic Blood Culture - Final No growth in 5 days Medications: Active Medications Generic Name Dose Route Start Last Admin Trade Name Freq PRN Reason Stop Dose Admin Acetaminophen 650 mg 03/18/18 21:58 03/19/18 08:06 Tylenol PO 650 mg Q6H PRN Administration FEVER > 100.4 Acetaminophen 650 mg 03/19/18 07:43 03/20/18 08:51 Tylenol PO 650 mg Q4H PRN Administration SEE LABEL COMMENTS Albuterol 1 ampul 03/19/18 08:01 03/19/18 08:35 Duoneb Neb (Prn) NEB 1 ampul Q4HR NEB PRN Administration wheezing/SOB Azithromycin 250 mg 03/19/18 12:00 03/25/18 09:38 Zithromax PO 250 mg DAILY [facility] Administration Diphenhydramine HCl 25 mg 03/18/18 14:47 03/19/18 11:04 Benadryl PO 25 mg Q4H PRN Administration ITCHING Docusate Sodium 100 mg 03/18/18 21:00 03/25/18 09:38 Colace PO 100 mg BID [facility] Administration Enoxaparin Sodium 40 mg 03/19/18 21:00 03/24/18 20:05 Lovenox Inj SQ 40 mg Q24H [facility] Administration Folic Acid 1 mg 03/19/18 09:00 03/25/18 09:38 Folic Acid PO 1 mg DAILY [facility] Administration Hydromorphone HCl 2 mg 03/24/18 11:03 03/25/18 09:38 Dilaudid Pf Inj IV.PUSH 2 mg Q4H PRN Administration Acute Pain 1-10 Hydromorphone HCl 4 mg 03/24/18 12:00 03/25/18 07:02 Dilaudid PO 4 mg Q6H [facility] Administration Ceftriaxone Sodium 1,000 mg/ 100 mls @ 200 mls/hr 03/19/18 14:00 03/24/18 14: 20 Sodium Chloride IV.SIG Infused Q24H [facility] Infusion Lactated Ringer's 1,000 mls @ 100 mls/hr 03/18/18 21:00 03/25/18 06:56 Lr 1000 Ml Inj IV.CONT Infused .Q10H [facility] Infusion Lidocaine HCl 1 patch 03/21/18 14:15 03/25/18 09:38 Lidoderm 5% Patch.12 Hr T-DERMAL 1 patch DAILY [facility] Administration Patch Removal 1 each 03/21/18 21:00 03/24/18 20:09 Remove Old Patch T-DERMAL 1 each HS [facility] Administration Sodium Chloride 2 ml 03/18/18 14:47 03/20/18 08:51 Ns Flush IV.FLUSH 2 ml PRN PRN Administration FLUSH AFTER USING IV ACCESS Sodium Chloride 2 ml 03/18/18 21:00 03/25/18 09:39 Ns Flush IV.FLUSH 2 ml BID [facility] Administration Objective Remarks: GENERAL: Young female lying in bed, in no acute distress. SKIN: Warm and dry. HEAD: Normocephalic. EYES: No scleral icterus. No injection or drainage. NECK: Supple, trachea midline. No JVD or lymphadenopathy. CARDIOVASCULAR: Normal rate and rhythm without murmurs. RESPIRATORY: Anterior breath sounds clear, equal bilaterally. Nonlabored at rest. O2 sat 97% on 2 L nasal cannula. GASTROINTESTINAL: Abdomen soft, non-tender, nondistended. EXTREMITIES: No cyanosis, or edema. SCDs in place. MUSCULOSKELETAL: Adequate muscle tone. NEUROLOGICAL: No obvious focal deficit. Assessment/Plan - Plan 22-year-old female admitted with shortness of breath and sickle cell crisis 1. Sickle Cell pain crisis. Off Dilaudid HIGHWAY ENGINEER, currently on Dilaudid 4 mg p.o. every 6 hours scheduled and Dilaudid IV 2 mg every 4 hours as needed for breakthrough pain. 2. Sickle cell anemia, stable hemoglobin 7.3. No transfusions warranted at this time. 3. CBC, LDH, total bilirubin and reticulocyte count have all improved. If patient remains stable, she may be discharged from a hematologic standpoint. She should follow-up with her morals squad police officer at [facility]. - Attending Statement The exam, history, and the medical decision-making described in the above note were completed with the assistance of the mid-level provider. I reviewed and agree with the findings presented. I attest that I had a [id number] encounter with the patient on the same day, and personally performed and documented my assessment and findings in the medical record. Resting comfortablyin bed. Resports that her pain is improved but not yet back to baseline. Cotnineu with oral hydromorphone. HEmoglobin at baseline.
[2018-03-25] MEDS ORDERED: Magnesium Citrate Liq 300 ML Bottle PO ONE (11:00)
[2018-03-25] MEDS: Enoxaparin Inj 40 MG/0.4 ML Syringe SQ SCH (22:21)
[2018-03-26] MEDS: HYDROmorphone PF Inj 2 MG/ML Vial IV.PUSH PRN ×2 (02:44→08:00)
[2018-03-26] MEDS: Lidocaine 5% Patch T-DERMAL SCH (08:01)
[2018-03-26] MEDS: Docusate Sodium 100 MG Capsule PO SCH (08:01)
[2018-03-26] MEDS: Folic Acid 1 MG Tablet PO SCH (08:01)
--- NOTE | 2018-03-26 09:33 | P.PNONC ---
Subjective Interval history: Patient resting comfortably in bed, in no acute distress. She reports her pain has improved. She still has intermittent bilateral leg pain. She has not been able to get out of bed and walk yet, however stating she has been doing exercises in the bed. She denies any shortness of breath, except "sometimes at night". Denies any further chest pain. Currently on room air. Objective Vital Signs/Intake & Output: Vital Signs 03/25/18 12:17 03/25/18 18:05 03/25/18 18:29 Temperature 97.7 F 97.8 F Pulse Rate 67 66 Respiratory Rate 16 16 Blood Pressure 103/55 L 106/52 L Pulse Oximetry 98 98 97 03/25/18 20:00 03/26/18 00:00 03/26/18 04:00 Temperature 97.2 F L 97.9 F 98.0 F Pulse Rate 76 69 69 Respiratory Rate 20 19 17 Blood Pressure 109/53 L 100/53 L 105/58 L Pulse Oximetry 98 0 L 97 03/26/18 08:00 Temperature 97.9 F Pulse Rate 76 Respiratory Rate 20 Blood Pressure 103/57 L Pulse Oximetry 100 Intake & Output 03/25/18 03/26/18 03/26/18 18:59 06:59 18:59 Intake Total 1100 / 1100 1000 / 1000 Output Total 1200 / 1200 Balance 1100 / 1100 -200 / -200 Weight 76.5 kg Intake: IV 100 / 100 1000 / 1000 LR 1000 mL Inj 1,000 ML @ 100 1000 / 1000 mls/hr IV.CONT .Q10H [facility] Rx#: [id number] Rocephin Inj 1,000 MG In NS Inj 100 / 100 100 ML @ 200 mls/hr IV.SIG Q24H [facility] Rx#:[id number] Oral 1000 / 1000 Output: Urine Amount (Catheter) 1200 / 1200 Female External 1200 / 1200 Other: # Bowel Movements 0 Result Diagrams: 03/25/18 06:00 03/24/18 03:55 Culture Results: Microbiology 03/18/18 12:55 Aerobic Blood Culture - Final Blood - Peripheral No growth in 5 days Anaerobic Blood Culture - Final No growth in 5 days 03/18/18 12:40 Aerobic Blood Culture - Final Blood - Peripheral No growth in 5 days Anaerobic Blood Culture - Final No growth in 5 days Medications: Active Medications Generic Name Dose Route Start Last Admin Trade Name Freq PRN Reason Stop Dose Admin Acetaminophen 650 mg 03/18/18 21:58 03/19/18 08:06 Tylenol PO 650 mg Q6H PRN Administration FEVER > 100.4 Acetaminophen 650 mg 03/19/18 07:43 03/20/18 08:51 Tylenol PO 650 mg Q4H PRN Administration SEE LABEL COMMENTS Albuterol 1 ampul 03/19/18 08:01 03/19/18 08:35 Duoneb Neb (Prn) NEB 1 ampul Q4HR NEB PRN Administration wheezing/SOB Diphenhydramine HCl 25 mg 03/18/18 14:47 03/19/18 11:04 Benadryl PO 25 mg Q4H PRN Administration ITCHING Docusate Sodium 100 mg 03/18/18 21:00 03/26/18 08:01 Colace PO 100 mg BID [facility] Administration Enoxaparin Sodium 40 mg 03/19/18 21:00 03/25/18 22:21 Lovenox Inj SQ 40 mg Q24H [facility] Administration Folic Acid 1 mg 03/19/18 09:00 03/26/18 08:01 Folic Acid PO 1 mg DAILY [facility] Administration Hydromorphone HCl 2 mg 03/24/18 11:03 03/26/18 08:00 Dilaudid Pf Inj IV.PUSH 2 mg Q4H PRN Administration Acute Pain 1-10 Hydromorphone HCl 4 mg 03/24/18 12:00 03/26/18 05:51 Dilaudid PO 4 mg Q6H [facility] Administration Ceftriaxone Sodium 1,000 mg/ 100 mls @ 200 mls/hr 03/19/18 14:00 03/25/18 14: 27 Sodium Chloride IV.SIG 03/26/18 13:59 Infused Q24H [facility] Infusion Lactated Ringer's 1,000 mls @ 100 mls/hr 03/18/18 21:00 03/26/18 03:08 Lr 1000 Ml Inj IV.CONT 100 mls/hr .Q10H [facility] Administration Lidocaine HCl 1 patch 03/21/18 14:15 03/26/18 08:01 Lidoderm 5% Patch.12 Hr T-DERMAL 1 patch DAILY [facility] Administration Patch Removal 1 each 03/21/18 21:00 03/25/18 21:00 Remove Old Patch T-DERMAL Not Given HS [facility] Sodium Chloride 2 ml 03/18/18 14:47 03/20/18 08:51 Ns Flush IV.FLUSH 2 ml PRN PRN Administration FLUSH AFTER USING IV ACCESS Sodium Chloride 2 ml 03/18/18 21:00 03/25/18 22:21 Ns Flush IV.FLUSH 2 ml BID [facility] Administration Objective Remarks: GENERAL: Young female lying in bed, in no acute distress. SKIN: Warm and dry. HEAD: Normocephalic. EYES: No scleral icterus. No injection or drainage. NECK: Supple, trachea midline. CARDIOVASCULAR: Normal rate and rhythm without murmurs. RESPIRATORY: Anterior breath sounds clear, equal bilaterally. Nonlabored at rest. O2 sat 100% on room air. GASTROINTESTINAL: Abdomen soft, non-tender, nondistended. EXTREMITIES: No cyanosis, or edema. SCDs in place. MUSCULOSKELETAL: Adequate muscle tone. NEUROLOGICAL: No obvious focal deficit. Assessment/Plan - Plan 22-year-old female admitted with shortness of breath and sickle cell crisis 1. Sickle Cell pain crisis. Off Dilaudid [employer], currently on Dilaudid 4 mg p.o. every 6 hours scheduled and Dilaudid IV 2 mg every 4 hours as needed for breakthrough pain. 2. If patient remains stable, she may be discharged from a hematologic standpoint. She should follow-up with her police stenographer at [facility]. - Attending Statement The exam, history, and the medical decision-making described in the above note were completed with the assistance of the mid-level provider. I reviewed and agree with the findings presented. I attest that I had a [id number] encounter with the patient on the same day, and personally performed and documented my assessment and findings in the medical record. REsting in bed. No distress. Discharge home planned for today. Patient reports that she wants to be home for the holiday. She will need to have close follow up with police stenographer at [facility].
--- NOTE | 2018-03-26 09:47 | P.DS ---
Date of admission: 03/18/18 14:26 Primary care physician: UNKNOWN Attending physician on discharge: Bonifacio Weems Anticipated date of discharge: 03/26/18 Brief History from admission: This patient is a 22 y/o F with a dx of Sickle cell anemia. She follows up with Dr. Moody at [facility] in [place]. She says she was recently discharged from [place] ED but still continues to have pain and came into our hospital for evaluation. She has pain in her joints all over her body specifically in the lower exts b/l, lower back, and hips. No chest pain. The mother also reports that she has been having a cough productive of greenish sputum over the past few days. No abd pain, fevers, no chills. Patient says she has approximately 4 sickle cell crisis per yr. pmh sickle cell disease surgical hx none fam hx sickle cell disease in mothers side of the family social hx patient smokes marijuana, denies tobacco, denies etoh, denies any other substance abuse. Patient update on day of discharge: Follow-up visit sickle cell painful crisis, pneumonia. Patient seen and examined today. Patient states that she is feeling a lot better today. States that her pain is more manageable. States she has some constipation and has not drink the mag citrate yet. States that she has not gotten out of bed often and wants to be assisted with the use of walker. States she has oxygen at home. Otherwise, denies SOB/ dyspnea. Denies chest pain, palpitations, headaches, dizziness. Denies fevers, chills, n/v/d. Denies dysuria. DS: Diagnosis - Discharge Diagnosis (1) Acute sickle cell crisis Status: Acute (2) Pneumonia Status: Acute DS: Medications - Discharge Medications Prescriptions: docusate sodium [DOK] 100 mg PO BID #60 cap DS: Summary Hospital Course: 22 y/o female with a dx of Sickle cell anemia came in to the hospital for continued to have pain all over her joints. Patient to be found on acute sickle cell pain crisis. IV fluids was provided. Continued with her home medication. Initially was on [employer] Dilaudid which she has been weaned off with by mouth Dilaudid and IV for breakthrough pain. She was followed by electric arc welder and has cleared her for discharge to follow-up with her own electric arc welder in [place]. Patient found to have urine drug screen positive for cannabinoids and admitted to using marijuana. Her pain has significantly improved. Patient also found to have pneumonia which she has been treated by IV azithromycin, ceftriaxone. Last dose of her ceftriaxone was today. Blood cultures were negative to date. Occasional cough but otherwise able to breathe on room air without difficulty, no shortness of breath or dyspnea. States she has O2 at home and uses it if she needs it. Patient had sickle cell anemia were in she had blood transfusion, 3 units PRBC. Her hemoglobin is stabilized at 7.3/21.5. She also was complaining of chest wall pain which is reproducible likely musculoskeletal when she was started on Lidoderm patch and this is significantly improved. Patient has met maximal benefits of hospitalization. Clinically stable for discharge. [employer] Prescription Drug Monitoring Database has been queried and verified prior to prescribing the controlled substance. She is being prescribed by her electric arc welder in [place] Dilaudid p.o. She will continue medication when she goes home. We will not provide prescription hydromorphone. Patient had hydromorphone quantity of 45, provided by Emir Moody in [facility], 03/10/2018. Patient got admitted to the hospital 03/18/18. - Time Spent with Patient Total time spent providing and/or coordinating discharge services: Less than 30 minutes - Quality: VTE Deep Vein Thrombosis/Pulmonary Embolism Present on Admission: No Exam Vital signs: Vital Signs 03/25/18 12:17 03/25/18 18:05 03/25/18 18:29 Temperature 97.7 F 97.8 F Pulse Rate 67 66 Respiratory Rate 16 16 Blood Pressure 103/55 L 106/52 L Pulse Oximetry 98 98 97 03/25/18 20:00 03/26/18 00:00 03/26/18 04:00 Temperature 97.2 F L 97.9 F 98.0 F Pulse Rate 76 69 69 Respiratory Rate 20 19 17 Blood Pressure 109/53 L 100/53 L 105/58 L Pulse Oximetry 98 0 L 97 03/26/18 08:00 Temperature 97.9 F Pulse Rate 76 Respiratory Rate 20 Blood Pressure 103/57 L Pulse Oximetry 100 Intake & Output 03/25/18 03/26/18 03/26/18 18:59 06:59 18:59 Intake Total 1100 / 1100 1000 / 1000 Output Total 1200 / 1200 Balance 1100 / 1100 -200 / -200 Weight 76.5 kg Intake: IV 100 / 100 1000 / 1000 LR 1000 mL Inj 1,000 ML @ 100 1000 / 1000 mls/hr IV.CONT .Q10H CRISTELA Rx#: [id number] Rocephin Inj 1,000 MG In NS Inj 100 / 100 100 ML @ 200 mls/hr IV.SIG Q24H CRISTELA Rx#:[id number] Oral 1000 / 1000 Output: Urine Amount (Catheter) 1200 / 1200 Female External 1200 / 1200 Other: # Bowel Movements 0 Narrative: GENERAL: This is a well-developed AA female patient, in no apparent distress. SKIN: Warm and dry. HEENT: Normocephalic. Pupils equal round and reactive. Nose without bleeding. Airway patent. NECK: Trachea midline. CARDIOVASCULAR: Regular rate and rhythm without murmurs, gallops, or rubs. RESPIRATORY: Clear to auscultation. Breath sounds equal bilaterally. No wheezes , rales, or rhonchi. GASTROINTESTINAL: Abdomen soft, non-tender, nondistended. Bowel Sounds hypoactive. MUSCULOSKELETAL: Extremities without clubbing, cyanosis, or edema. NEUROLOGICAL: Awake and alert. No focal neuro deficit. Moves all extremities. Normal speech. Results Procedures completed during hospitalization: None - Impressions ITS Impressions Chest X-Ray 03/19/18 00:00 CONCLUSION: Negative examination. Chest CT 03/22/18 00:00 CONCLUSION: 1. Posterior bibasilar alveolar consolidations are noted consistent with probable pneumonia. Clinical correlation is recommended. 2. Tiny bilateral pleural effusions. 3. Cardiomegaly. 4. Minimal atelectatic changes within the right upper lobe. Discharge Plan - Discharge Disposition Patient Disposition: 01 Discharge Home - Discharge Condition Condition: Stable - Discharge Order Discharge Orders: Discharge Order (Routine); Ordered 03/26/18 Ordered By: Laina Dominique - Physicians Team Primary Care Provider: UNKNOWN, Attending Provider: Bonifacio Weems Other Providers: Nori Renner MD
[2018-03-26] MEDS ORDERED: HYDROmorphone PF Inj 1 MG/ML Ampul IV.PUSH PRN (12:02)
[2018-03-26 13:08] VITALS: BP 103/62; PULSE 73; RESP 18; TEMP 97.8; O2SAT 100
== END 2018-03-26 18:35 | disposition home or self-care (01) ==
LOC: NEPD 11:58 → NEDA 14:26 → H6YA 15:50 → HCIN 22:54 → HIMC 03-19 13:30 → N05 03-24 15:24
PROVIDERS: ADMIT Internal Medicine; ATTEND Internal Medicine
DX: J18.9 Pneumonia, unspecified organism; F12.90 Cannabis use, unspecified, uncomplicated; J45.909 Unspecified asthma, uncomplicated; R07.89 Other chest pain; N60.19 Diffuse cystic mastopathy of unspecified breast; K59.00 Constipation, unspecified; G89.29 Other chronic pain; D57.00 Hb-SS disease with crisis, unspecified